=== PATIENT | male | born 1975 | race Caucasian/White ===

== ENCOUNTER 2016-10-11 10:49 | Day surgery (SDC) | payer MEDICARE, OTHER ==
[2016-10-07 14:48] VITALS: BMI 39.9
[~2016-10-11 10:49] MED LIST: LACTATED RINGERS 1,000 ML IV SCH
[2016-10-11 12:01] VITALS: RESP 16; TEMP 97.5
[2016-10-11] MEDS ORDERED: LIDOCAINE 1% 20 ML VIAL (10MG/ML) FOR IV START INTRADERMA ONE (12:02)
[2016-10-11] MEDS ORDERED: LIDOCAINE 1% INJ 10MG/ML (20 ML MDV) ONE (12:06)
[2016-10-11] MEDS ORDERED: PROPOFOL 10 MG/ML 20 ML VIAL IV ONE (12:06)
--- NOTE | 2016-10-11 12:49 | P.PCN ---
Date of Procedure: 10/11/16 Procedure(s) Performed: Procedure: Colonoscopy and biopsy. Preoperative diagnosis: Intermittent rectal bleeding. Postoperative diagnosis: 1. Low-grade internal hemorrhoids not bleeding at the time of this exam. 2. Two diminutive polyps in the sigmoid biopsied, but no large polyps or cancer. Preparation: HalfLytely prep. Sedation: Was provided by anesthesia Brief clinical history: The patient is a 41-year-old male who is referred for this evaluation because of intermittent rectal bleeding and finding of blood on the toilet tissue. He has no abdominal symptoms or change in bowel habits. This evaluation is to assess for a source of bleeding. Procedure: With the patient on his left lateral decubitus position and after informed consent and adequate sedation, the perianal area was inspected and it did not show any fissures or fistulas. There were no masses felt on digital rectal examination. The Olympus CFQ 160L video colonoscope was then inserted in the rectum in the usual fashion and advanced to the cecum. I intubated the ileocecal valve and examined the terminal ileum. Terminal ileum and colon appeared healthy with no edema, erythema, friability, ulceration, exudation or spontaneous bleeding. There were 2 diminutive polyps in the sigmoid which I biopsied but there were no large polyps or cancer. No obvious diverticular disease or other pathology. I retroflexed the endoscope in the rectum before the endoscope was withdrawn. Low-grade internal hemorrhoids were noted but there was no evidence of bleeding. The patient tolerated the procedure well. Plan: The patient was reassured. Discussed dietary measures and local care for hemorrhoids. He will follow-up with you as planned and I recommended repeat exam in 5 years.
[2016-10-11 13:02] VITALS: BP 134/89; PULSE 71
== END 2016-10-11 13:22 | disposition home or self-care (01) ==
LOC: ORWHC2ENDO 10:49
DX: K64.8 Other hemorrhoids (principal); D12.5 Benign neoplasm of sigmoid colon; Z87.19 Personal history of other diseases of the digestive system; J45.909 Unspecified asthma, uncomplicated; I10 Essential (primary) hypertension; F31.9 Bipolar disorder, unspecified; E66.9 Obesity, unspecified; Z79.899 Other long term (current) drug therapy; Z87.891 Personal history of nicotine dependence
CPT/HCPCS: 88305; 45380; J2001; J2704

== ENCOUNTER 2018-06-03 17:10 | Emergency (ER) | payer MEDICARE, OTHER ==
[2018-06-03 17:29] VITALS: RESP 18
--- NOTE | 2018-06-03 19:28 | CT ---
EXAMINATION TYPE: CT brain niko pandya DATE OF EXAM: 06/03/2018 COMPARISON: None HISTORY: Pt fell onto back of head, hitting concrete CT DLP: 1861.2 mGycm Automated exposure control for dose reduction was used. TECHNIQUE: CT scan of the head and cervical spine are performed without contrast. FINDINGS: There is enlargement of the ventricles. There are 6 x 3 cm area of white matter hypodensi ty right posterior frontal lobe consistent with old infarct. There is wedge-shaped 2.5 cm area of hyp odensity right occipital lobe consistent with old cortical infarct. There is no midline shift. There is no mass effect. There is a 3 cm area of hypodensity inferior right frontal lobe consistent with ol d cortical infarct. There is no evidence of intracranial hemorrhage. There is left posterior parietal scalp hematoma. I see no skull fracture. The skull base is intact. There is some straightening of the cervical spine. Disc spaces are fairly normal. Posterior elements are intact. There is no evidence of cervical spine fracture. Skull base is intact. Facet joints appea r normal. IMPRESSION: Negative CT scan of the cervical spine. Left parietal scalp hematoma. 

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
[2018-06-03] MEDS ORDERED: HYDROcodone/APAP 5-325MG 1 EACH TAB PO STA (20:18)
[2018-06-03 20:39] VITALS: BP 143/71; PULSE 77; TEMP 98.2
== END 2018-06-03 20:42 | disposition home or self-care (01) ==
LOC: EC 17:10
DX: S01.01XA Laceration without foreign body of scalp, initial encounter (principal); J45.909 Unspecified asthma, uncomplicated; I10 Essential (primary) hypertension; G80.9 Cerebral palsy, unspecified; F31.9 Bipolar disorder, unspecified; F25.9 Schizoaffective disorder, unspecified; F41.0 Panic disorder [episodic paroxysmal anxiety]; Z79.82 Long term (current) use of aspirin; Z79.899 Other long term (current) drug therapy; Z87.891 Personal history of nicotine dependence; W01.198A Fall on same level from slipping, tripping and stumbling with subsequent striking against other object, initial encounter; Y92.008 Other place in unspecified non-institutional (private) residence as the place of occurrence of the external cause
CPT/HCPCS: 70450; 72125; 99283

== ENCOUNTER 2020-06-28 09:19 | Emergency (ER) | payer MEDICARE, OTHER ==
[2020-06-28 09:24] VITALS: BP 100/73; PULSE 88; RESP 16; TEMP 99.4
--- NOTE | 2020-06-28 09:49 | ED ---
Abdominal Pain HPI - General Chief Complaint: Abdominal Pain Stated Complaint: groin pain Time Seen by Provider: 06/28/20 09:27 Source: patient, RN notes reviewed Mode of arrival: ambulatory Limitations: no limitations - History of Present Illness Initial Comments: 45-year-old presented emergency department with chief complaint of pain along the skin underneath his pannus. Patient states his started last 24 hours she's had recurrent fungal infections. He states his been losing weight and states that there is a fracture skin. Patient denies and diabetic patient offers no complaints. - Related Data Home Medications Medication Instructions Recorded Confirmed Albuterol Inhaler (Mhu) [Ventolin 1 - 2 puff INHALATION Q6HR PRN 10/07/16 10/07/16 Hfa Inhaler] Aspirin [Adult Low Dose Aspirin EC] 81 mg PO DAILY 10/07/16 10/07/16 DULoxetine HCL [Cymbalta] 60 mg PO DAILY 10/07/16 10/07/16 Fiber Supplement 1 dose PO DAILY 10/07/16 10/07/16 Fluticasone Propionate [Flovent 50 mcg INHALATION DAILY PRN 10/07/16 10/07/16 Diskus] Melatonin 6 mg PO HS 10/07/16 10/07/16 Mirabegron [Myrbetriq] 50 mg PO HS 10/07/16 10/07/16 QUEtiapine XR [SEROquel XR] 150 mg PO HS 10/07/16 10/07/16 busPIRone HCL [Buspar] 15 mg PO BID 10/07/16 10/07/16 clonazePAM [KlonoPIN] 0.25 mg PO BID 10/07/16 10/07/16 lamoTRIgine [LaMICtal Xr] 250 mg PO DAILY 10/07/16 10/07/16 lisinopriL [Prinivil] 20 mg PO DAILY 10/07/16 10/07/16 Previous Rx's Medication Instructions Recorded Nystatin 100,000 Unit/gm Powd 1 applic TOPICAL BID #15 gram 06/28/20 [Mycostatin Powder] Allergies Allergy/AdvReac Type Severity Reaction Status Date / Time No Known Allergies Allergy Verified 06/28/20 09:24 Review of Systems ROS Statement: Those systems with pertinent positive or pertinent negative responses have been documented in the HPI. ROS Other: All systems not noted in ROS Statement are negative. Past Medical History Past Medical History: Asthma, GI Bleed, Hypertension, Osteoarthritis (OA), Vascular Disorder Additional Past Medical History / Comment(s): CP, closed head injury, hx hyponatremia, anemia, internal hemorrhoids History of Any Multi-Drug Resistant Organisms: MRSA Date of last positivie culture/infection: stomach MDRO Source:: 2016 Past Surgical History: Orthopedic Surgery Additional Past Surgical History / Comment(s): scope dom. knees Past Anesthesia/Blood Transfusion Reactions: No Reported Reaction Past Psychological History: Bipolar, Panic Disorder, Schizoaffective Disorder Smoking Status: Former smoker Past Alcohol Use History: None Reported Past Drug Use History: None Reported - Past Family History Father Family Medical History: Cancer Additional Family Medical History / Comment(s): liver cancer General Exam Limitations: no limitations General appearance: alert, in no apparent distress Head exam: Present: atraumatic, normocephalic, normal inspection Eye exam: Present: normal appearance, PERRL, EOMI. Absent: scleral icterus, conjunctival injection, periorbital swelling ENT exam: Present: normal exam, mucous membranes moist Neck exam: Present: normal inspection, full ROM. Absent: tenderness, meningismus, lymphadenopathy Respiratory exam: Present: normal lung sounds bilaterally. Absent: respiratory distress, wheezes, rales, rhonchi, stridor Cardiovascular Exam: Present: regular rate, normal rhythm, normal heart sounds. Absent: systolic murmur, diastolic murmur, rubs, gallop, clicks Skin exam: Present: warm, dry, intact, normal color, rash (Erythema with bordering under the pannus) Course Vital Signs 06/28/20 09:21 Temperature 99.4 F Pulse Rate 88 Respiratory 16 Rate Blood Pressure 100/73 O2 Sat by Pulse 97 Oximetry Medical Decision Making - Medical Decision Making Patient has noted these infection. Patient was started on nystatin. Return parameters were discussed. Disposition Clinical Impression: Candidiasis, intertrigo Disposition: HOME SELF-CARE Condition: Stable Instructions (If sedation given, give patient instructions): Skin Yeast Infection (ED) Additional Instructions: Please return to the Emergency Department if symptoms worsen or any other concerns. Prescriptions: Nystatin 100,000 Unit/gm Powd [Mycostatin Powder] 1 applic TOPICAL BID #15 gram Is patient prescribed a controlled substance at d/c from ED?: No Referrals: Katherine Sexton DO [Primary Care Provider] - 1-2 days Time of Disposition: 09:49
== END 2020-06-28 10:25 | disposition home or self-care (01) ==
LOC: EC 09:19
DX: B37.2 Candidiasis of skin and nail (principal); L30.4 Erythema intertrigo; F41.9 Anxiety disorder, unspecified; F31.9 Bipolar disorder, unspecified; F41.0 Panic disorder [episodic paroxysmal anxiety]; F25.9 Schizoaffective disorder, unspecified; I10 Essential (primary) hypertension; M19.90 Unspecified osteoarthritis, unspecified site; J45.909 Unspecified asthma, uncomplicated; Z79.82 Long term (current) use of aspirin; Z79.51 Long term (current) use of inhaled steroids; Z79.899 Other long term (current) drug therapy; Z87.891 Personal history of nicotine dependence; Z86.14 Personal history of Methicillin resistant Staphylococcus aureus infection
CPT/HCPCS: 99283

== ENCOUNTER → 2021-03-13 | Outpatient (CLI) | payer MEDICARE, OTHER ==
--- NOTE | 2021-03-13 09:31 | XR ---
Lumbar spine HISTORY: Low back pain, bilateral leg numbness 3 views lumbar spine There is multilevel spondylosis present. Lumbar vertebral bodies show preserved height and alignment. Loss of disc height is present at intervertebral levels L3-4, L4-5 and L5-S1. IMPRESSION: Degenerative disc disease.
== END | disposition home or self-care (01) ==
LOC: RADXRMAIN 08:12
PROVIDERS: ATTEND Chiropractor
DX: M51.36 Other intervertebral disc degeneration, lumbar region (principal); M99.03 Segmental and somatic dysfunction of lumbar region; M54.42 Lumbago with sciatica, left side; M54.41 Lumbago with sciatica, right side
CPT/HCPCS: 72100

== ENCOUNTER → 2021-04-07 | Outpatient (CLI) | payer MEDICARE, OTHER ==
--- NOTE | 2021-04-07 15:11 | CONS ---
CONSULTATION DATE OF SERVICE: 04/07/2021 This 45-year-old gentleman has been evaluated in [facility] for possible obstructive sleep apnea-hypopnea syndrome. HISTORY OF PRESENT ILLNESS/SLEEP-WAKE EVALUATION: Patient's usual sleep schedule is from around 8 or 8:30 p.m. until 7 a.m. Sometimes he has problems with falling asleep. He has a TV set in the bedroom. He usually sleeps on the side position. He does snore loudly and he has witnessed episodes of stopped breathing during sleep. He also wakes up with episodes of gasping for air and nocturia 4 times at night. No history of hypnagogic hallucinations, sleep paralysis or cataplexy. During the day he usually does not take naps. [place] Sleepiness Scale is 6. The patient has a history of restless leg symptoms. PAST MEDICAL HISTORY: Positive for hypertension, bipolar disorder, schizophrenia, hyperlipidemia, asthma, hypothyroidism, anemia. MEDICATIONS: Clozaril, MiraLAX, lisinopril. SOCIAL HISTORY: Positive for smoking in the past; quit 15 years ago. FAMILY HISTORY: Cancer and diabetes. REVIEW OF SYSTEMS: Multiple awakenings from sleep, episodes of sleepiness during the day. No fevers. No double vision. No recent chest pain. No shortness of breath. No abdominal pain. No bleeding episodes. No blood in the urine. No seizure episodes. PHYSICAL EXAMINATION: GENERAL: Pleasant gentleman without distress. VITAL SIGNS: BP 118/80, HR 92, RR 18, height 5 feet 8 inches, weight 281.4, temperature 97.7, oxygen saturation at room air 97%. Body mass index 42.7. HEENT: PERRLA, EOMI, evaluation of oropharynx showed tongue protrudes midline. Extremely low position of soft palate; Mallampati IV. NECK: Supple, no JVD. Thyroid is not palpable. Neck is wide; 17-1/2 inches in circumference. LUNGS: Clear to percussion and to auscultation. Good air exchange. No wheezing or rhonchi. HEART: S1, S2 regular. No murmurs, gallops, or rubs. ABDOMEN: Obese. EXTREMITIES: No clubbing or cyanosis. OFFICE SUPPORT CLERK: Awake, alert, and oriented X3. Cranial nerves 2 to 7 intact. There is no fasciculation or atrophy. noted. No focal deficits observed. IMPRESSION: 1. Loud snoring, witnessed episodes of stopped breathing during sleep, multiple awakenings from sleep with gasping for air and nocturia, extremely low position of soft palate, wide neck; obstructive sleep apnea-hypopnea syndrome. 2. Hypertension. 3. Bipolar disorder. 4. History of schizophrenia. 5. Obesity; body mass index 42.7. 6. Hyperlipidemia. 7. History of asthma. 8. History of hypothyroidism. 9. History of anemia. 10.Symptoms of restless legs syndrome. PLAN: 1. Polysomnography for evaluation of patient's breathing during sleep. 2. CPAP/BiPAP titration if sleep study confirms obstructive sleep apnea-hypopnea syndrome. 3. Preferable position during sleep on the side. 4. No driving if patient feels any sleepiness. 5. I will see patient for follow up visit to explain results of testing and following plan. Thank you very much for referring this patient for consultation. Sincerely, Gilles Palma MD, PhD, FAASM Diplomat of [place] [employer] Sleep Medicine Board of [place] [employer] Players Assistant of [facility] [place] MMODL / ANNETTEN: [id number] /
== END | disposition home or self-care (01) ==
LOC: SLEEP 13:16
PROVIDERS: ATTEND Internal Medicine
DX: G47.33 Obstructive sleep apnea (adult) (pediatric) (principal); I10 Essential (primary) hypertension; F31.9 Bipolar disorder, unspecified; E78.5 Hyperlipidemia, unspecified; E66.9 Obesity, unspecified; Z86.69 Personal history of other diseases of the nervous system and sense organs; Z68.41 Body mass index [BMI] 40.0-44.9, adult; Z87.09 Personal history of other diseases of the respiratory system; Z86.39 Personal history of other endocrine, nutritional and metabolic disease; Z86.2 Personal history of diseases of the blood and blood-forming organs and certain disorders involving the immune mechanism
CPT/HCPCS: 99211

== ENCOUNTER 2022-02-03 10:11 | Inpatient (IN) | payer MEDICARE, OTHER ==
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
--- NOTE | 2022-02-03 14:32 | ED ---
General Adult HPI - General Chief complaint: Fall Stated complaint: Fall Time Seen by Provider: 02/03/22 13:41 Source: patient, family, RN notes reviewed Mode of arrival: ambulatory Limitations: no limitations - History of Present Illness Initial comments: Patient is a pleasant 46-year-old female presenting to the emergency department with concerns for possible stroke. Patient has had previously. Patient last known well was around 8 PM last night. Patient woke up on the floor, unclear how he got there. Patient has had some slurred speech. Family noticed as well. This has improved. Patient has also had some wobbliness of his legs over the past few days. No isolated area of weakness. Patient feels a little bit lightheaded. - Related Data Home Medications Medication Instructions Recorded Confirmed Albuterol Inhaler [Ventolin Hfa 1 - 2 puff INHALATION Q6HR PRN 10/07/16 10/07/16 Inhaler] Aspirin [Adult Low Dose Aspirin EC] 81 mg PO DAILY 10/07/16 10/07/16 DULoxetine HCL [Cymbalta] 60 mg PO DAILY 10/07/16 10/07/16 Fiber Supplement 1 dose PO DAILY 10/07/16 10/07/16 Fluticasone Propionate [Flovent 50 mcg INHALATION DAILY PRN 10/07/16 10/07/16 Diskus] Melatonin 6 mg PO HS 10/07/16 10/07/16 Mirabegron [Myrbetriq] 50 mg PO HS 10/07/16 10/07/16 QUEtiapine XR [SEROquel XR] 150 mg PO HS 10/07/16 10/07/16 busPIRone HCL [Buspar] 15 mg PO BID 10/07/16 10/07/16 clonazePAM [KlonoPIN] 0.25 mg PO BID 10/07/16 10/07/16 lamoTRIgine [LaMICtal Xr] 250 mg PO DAILY 10/07/16 10/07/16 lisinopriL [Prinivil] 20 mg PO DAILY 10/07/16 10/07/16 Previous Rx's Medication Instructions Recorded Nystatin 100,000 Unit/gm Powd 1 applic TOPICAL BID #15 gram 06/28/20 [Mycostatin Powder] Allergies Allergy/AdvReac Type Severity Reaction Status Date / Time No Known Allergies Allergy Verified 02/03/22 10:25 Review of Systems ROS Statement: Those systems with pertinent positive or pertinent negative responses have been documented in the HPI. ROS Other: All systems not noted in ROS Statement are negative. Constitutional: Denies: fever Eyes: Denies: eye pain ENT: Denies: ear pain Respiratory: Denies: cough Cardiovascular: Denies: chest pain Endocrine: Denies: fatigue Gastrointestinal: Denies: abdominal pain Genitourinary: Denies: dysuria Neurological: Reports: as per HPI. Denies: headache Past Medical History Past Medical History: Asthma, GI Bleed, Hypertension, Osteoarthritis (OA), Vascular Disorder Additional Past Medical History / Comment(s): CP, closed head injury, hx hyponatremia, anemia, internal hemorrhoids History of Any Multi-Drug Resistant Organisms: MRSA Date of last positivie culture/infection: stomach MDRO Source:: 2016 Past Surgical History: Orthopedic Surgery Additional Past Surgical History / Comment(s): scope dom. knees Past Anesthesia/Blood Transfusion Reactions: No Reported Reaction Past Psychological History: Bipolar, Panic Disorder, Schizoaffective Disorder Smoking Status: Former smoker Past Alcohol Use History: None Reported Past Drug Use History: None Reported - Past Family History Father Family Medical History: Cancer Additional Family Medical History / Comment(s): liver cancer General Exam Limitations: no limitations General appearance: alert, in no apparent distress Head exam: Present: normocephalic Eye exam: Present: normal appearance, PERRL, EOMI ENT exam: Present: normal oropharynx Neck exam: Present: normal inspection. Absent: tenderness Respiratory exam: Present: normal lung sounds bilaterally Cardiovascular Exam: Present: regular rate, normal rhythm GI/Abdominal exam: Present: soft. Absent: tenderness Extremities exam: Present: normal inspection Neurological exam: Present: alert, CN II-XII intact. Absent: motor sensory deficit Expanded Speech: Present: fluid speech Cranial nerves: EOM's Intact: Normal Motor strength exam: RUE: 5, LUE: 5, RLE: 5, LLE: 5 Eye Response: (4) open spontaneously Motor Response: (6) obeys commands Verbal Response: (5) oriented Psychiatric exam: Present: normal affect, normal mood Skin exam: Present: normal color Course Vital Signs 02/03/22 10:17 Temperature 97.5 F L Pulse Rate 96 Respiratory 18 Rate Blood Pressure 99/49 O2 Sat by Pulse 97 Oximetry EKG Findings - EKG Comments: EKG Findings:: Sinus rhythm with rate of 78. SC 191. QRS 112. QT 399. QTC 432. Normal axis. Normal QRS. No acute ST change. Medical Decision Making - Medical Decision Making Patient reevaluated. Patient and family updated. Case was discussed with Dr. Candelaria, who will admit covering for Dr. Sexton. Patient has some dehydration and hyponatremia. IV fluids will be provided. Neurology will be evaluated secondary to patient's concern for TIA/CVA with slurred this morning. - Lab Data Result diagrams: 02/03/22 14:56 02/03/22 14:56 Lab Results 02/03/22 02/03/22 02/03/22 Range/Units 14:56 14:56 14:56 WBC 18.2 H (3.8-10.6) k/uL RBC 4.04 L (4.30-5.90) m/uL Hgb 12.8 L (13.0-17.5) gm/dL Hct 38.2 L (39.0-53.0) % MCV 94.6 (80.0-100.0) fL MCH 31.7 (25.0-35.0) pg MCHC 33.5 (31.0-37.0) g/dL RDW 12.7 (11.5-15.5) % Plt Count 343 (150-450) k/uL MPV 7.6 Neutrophils % 87 % Lymphocytes % 6 % Monocytes % 5 % Eosinophils % 0 % Basophils % 0 % Neutrophils # 15.8 H (1.3-7.7) k/uL Lymphocytes # 1.1 (1.0-4.8) k/uL Monocytes # 0.9 (0-1.0) k/uL Eosinophils # 0.1 (0-0.7) k/uL Basophils # 0.0 (0-0.2) k/uL PT 10.1 (9.0-12.0) sec INR 0.9 (<1.2) APTT 26.8 (22.0-30.0) sec Sodium 124 L (137-145) mmol/L Potassium 4.5 (3.5-5.1) mmol/L Chloride 95 L (98-107) mmol/L Carbon Dioxide 15 L (22-30) mmol/L Anion Gap 14 mmol/L BUN 31 H (9-20) mg/dL Creatinine 1.95 H (0.66-1.25) mg/dL Est GFR (CKD-EPI)AfAm 47 (>60 ml/min/1.73 sqM) Est GFR (CKD-EPI)NonAf 41 (>60 ml/min/1.73 sqM) Glucose 77 (74-99) mg/dL Calcium 8.9 (8.4-10.2) mg/dL Total Bilirubin 0.5 (0.2-1.3) mg/dL AST 38 (17-59) U/L ALT 30 (4-49) U/L Alkaline Phosphatase 75 (38-126) U/L Troponin I (0.000-0.034) ng/mL Total Protein 6.2 L (6.3-8.2) g/dL Albumin 3.6 (3.5-5.0) g/dL 02/03/22 Range/Units 14:56 WBC (3.8-10.6) k/uL RBC (4.30-5.90) m/uL Hgb (13.0-17.5) gm/dL Hct (39.0-53.0) % MCV (80.0-100.0) fL MCH (25.0-35.0) pg MCHC (31.0-37.0) g/dL RDW (11.5-15.5) % Plt Count (150-450) k/uL MPV Neutrophils % % Lymphocytes % % Monocytes % % Eosinophils % % Basophils % % Neutrophils # (1.3-7.7) k/uL Lymphocytes # (1.0-4.8) k/uL Monocytes # (0-1.0) k/uL Eosinophils # (0-0.7) k/uL Basophils # (0-0.2) k/uL PT (9.0-12.0) sec INR (<1.2) APTT (22.0-30.0) sec Sodium (137-145) mmol/L Potassium (3.5-5.1) mmol/L Chloride (98-107) mmol/L Carbon Dioxide (22-30) mmol/L Anion Gap mmol/L BUN (9-20) mg/dL Creatinine (0.66-1.25) mg/dL Est GFR (CKD-EPI)AfAm (>60 ml/min/1.73 sqM) Est GFR (CKD-EPI)NonAf (>60 ml/min/1.73 sqM) Glucose (74-99) mg/dL Calcium (8.4-10.2) mg/dL Total Bilirubin (0.2-1.3) mg/dL AST (17-59) U/L ALT (4-49) U/L Alkaline Phosphatase (38-126) U/L Troponin I <0.012 (0.000-0.034) ng/mL Total Protein (6.3-8.2) g/dL Albumin (3.5-5.0) g/dL - Radiology Data Radiology results: report reviewed (CT brain shows no acute process. Stable remote injuries right frontal lobe and right occipital. No C-spine fracture. Stable cystic enlargement anterior horn right lateral ventricle), image reviewed (Two-view chest x-ray shows no acute process.) Disposition Clinical Impression: Dehydration, Hyponatremia Disposition: ADMITTED IP TO THIS HOSP Is patient prescribed a controlled substance at d/c from ED?: No Referrals: Katherine Sexton DO [Primary Care Provider] - 1-2 days Time of Disposition: 15:59
[2022-02-03 15:05] LABS: Basophils % (A) 0 %; Eosinophils # (A) 0.1 k/uL (0-0.7); Eosinophils % (A) 0 %; HCT 38.2 % (39.0-53.0); HGB 12.8 gm/dL (13.0-17.5); Lymphocytes # (A) 1.1 k/uL (1.0-4.8); Lymphocytes % (A) 6 %; MCH 31.7 pg (25.0-35.0); MCHC 33.5 g/dL (31.0-37.0); MCV 94.6 fL (80.0-100.0); Mean Platelet Volume 7.6; Monocytes # (A) 0.9 k/uL (0-1.0); Monocytes % (A) 5 %; Neutrophils # (A) 15.8 k/uL (1.3-7.7); Neutrophils % (A) 87 %; Platelet Count 343 k/uL (150-450); RBC 4.04 m/uL (4.30-5.90); RDW 12.7 % (11.5-15.5); WBC 18.2 k/uL (3.8-10.6)
--- NOTE | 2022-02-03 15:30 | XR ---
EXAMINATION TYPE: XR chest 2V DATE OF EXAM: 02/03/2022 3:20 PM COMPARISON: None TECHNIQUE: XR chest 2V Frontal and lateral views of the chest. CLINICAL INDICATION:Male, 46 years old with history of altered mental status; FINDINGS: Lungs/Pleura: There is no evidence of pleural effusion, focal consolidation, or pneumothorax. Pulmonary vascularity: Unremarkable. Heart/mediastinum: Cardiomediastinal silhouette is unremarkable. Musculoskeletal: No acute osseous pathology. IMPRESSION: No acute cardiopulmonary disease/process.
[2022-02-03 15:31] LABS: INR 0.9 (<1.2); Partial Thromboplastin Time 26.8 sec (22.0-30.0); Prothrombin Time 10.1 sec (9.0-12.0)
[2022-02-03 15:34] LABS: Albumin 3.6 g/dL (3.5-5.0); Calcium 8.9 mg/dL (8.4-10.2); Potassium 4.5 mmol/L (3.5-5.1); Total Bilirubin 0.5 mg/dL (0.2-1.3); Total Protein 6.2 g/dL (6.3-8.2)
[2022-02-03] MEDS ORDERED: NALOXONE 0.4 MG/ML 1 ML VIAL IV PRN (16:00)
[2022-02-03] MEDS ORDERED: SODIUM CHLORIDE 0.9% 500 ML 500 ML IV STA (16:01)
[2022-02-03] MEDS ORDERED: FLUTICASONE 50MCG/SPRAY NASAL 16GM EA NOSTRIL PRN (20:06)
[2022-02-03] MEDS ORDERED: hydrOXYzine pamoate 25 MG CAP PO PRN (20:06)
[2022-02-03] MEDS ORDERED: ALBUTEROL NEBULIZED 2.5 MG/3 ML INHALATION PRN (20:06)
[2022-02-03] MEDS: TOPIRAMATE 25 MG TAB PO SCH (20:57)
[2022-02-03] MEDS: busPIRone HCl 10 MG TAB PO SCH (20:57)
[2022-02-03] MEDS: DULoxetine HCL 60 MG CAPSULE.DR PO SCH (20:58)
[2022-02-03] MEDS: cloZAPine 100 MG TAB PO SCH (20:58)
[2022-02-03] MEDS ORDERED: LITHIUM CARBONATE 300 MG CAP PO SCH (21:00)
[2022-02-03] MEDS: SODIUM CHLORIDE 0.9% 1,000 ML IV SCH (22:36)
[2022-02-04] MEDS: LEVOTHYROXINE 25 MCG TAB PO SCH (06:12)
[2022-02-04] MEDS: SODIUM CHLORIDE 0.9% 1,000 ML IV SCH ×2 (06:13→21:51)
[2022-02-04 07:14] LABS: Glucose,Whole Blood 80 mg/dL (70-110)
[2022-02-04] MEDS: INSULIN ASPART (NovoLOG) 100 UNIT/ML VIAL SQ SCH ×4 (08:17→23:31)
[2022-02-04] MEDS: TOPIRAMATE 25 MG TAB PO SCH ×2 (08:50→23:17)
[2022-02-04] MEDS: lisinopriL 20 MG TAB PO SCH (08:50)
[2022-02-04] MEDS: PROPRANOLOL LA 60 MG CAP.SA.24H PO SCH (08:50)
[2022-02-04] MEDS: DULoxetine HCL 60 MG CAPSULE.DR PO SCH ×2 (08:50→23:16)
[2022-02-04] MEDS: busPIRone HCl 10 MG TAB PO SCH ×2 (08:50→23:14)
[2022-02-04] MEDS: DOCUSATE 100 MG CAP PO SCH (08:51)
[2022-02-04] MEDS: PRAVASTATIN SODIUM 20 MG TAB PO SCH (08:51)
[2022-02-04] MEDS: TAMSULOSIN 0.4 MG CAP.ER.24H PO SCH (08:51)
[2022-02-04 08:57] LABS: Basophils # (A) 0.04 X 10*3/uL (0.00-0.10); Basophils % (A) 0.3 %; Eosinophils # (A) 0.11 X 10*3/uL (0.04-0.35); Eosinophils % (A) 0.7 %; HCT 35.2 % (39.6-50.0); HGB 11.9 g/dL (13.0-17.0); Immature Grans, Automated 0.7 %; Lymphocytes # (A) 1.36 X 10*3/uL (0.90-5.00); Lymphocytes % (A) 9.2 %; MCH 31.4 pg (27.0-32.0); MCHC 33.8 g/dL (32.0-37.0); MCV 92.9 fL (80.0-97.0); Mean Platelet Volume 10.3 fL (9.5-12.2); Monocytes # (A) 1.32 X 10*3/uL (0.20-1.00); Monocytes % (A) 8.9 %; NRBC Per 100 WBC 0 /100 WBCS (0.0-0.0); Neutrophils # (A) 11.85 X 10*3/uL (1.80-7.70); Neutrophils % (A) 80.2 %; Platelet Count 317 X 10*3/uL (140-440); RBC 3.79 X 10*6/uL (4.40-5.60); RDW 12.8 % (11.5-14.5); WBC 14.78 X 10*3/uL (4.50-10.00)
[2022-02-04 09:22] LABS: ALT 28 U/L (10-49); AST 29 U/L (14-35); African American GFR (CKD) 59.4 (60.0-200.0); Albumin 3.4 g/dL (3.8-4.9); Albumin/Globulin Ratio 1.62 (1.60-3.17); Alkaline Phosphatase 70 U/L (41-126); BUN/Creat Ratio 20.75 Ratio (12.00-20.00); Blood Urea Nitrogen 33.2 mg/dL (9.0-27.0); Carbon Dioxide 18.4 mmol/L (20.0-27.5); Chloride 99 mmol/L (96-109); Globulin 2.1 g/dL (1.6-3.3); Glucose 78 mg/dL (70-110); Non-African American GFR(CKD) 51.3 (60.0-200.0); Potassium 4.1 mmol/L (3.5-5.5); Sodium 127 mmol/L (135-145); Total Bilirubin <0.15 mg/dL (0.30-1.20); Total Protein 5.5 g/dL (6.2-8.2)
--- NOTE | 2022-02-04 11:18 | P.CNNES ---
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 Patient is a poor historian. But stated he passed out in middle of night prior to presenting to hospital. Then he noticed his speech is off. He denies any fever, headache, neck pain. Denies any sick contacts. Feels his speech is better but continues to have generalized weakness. He re sides home a lone. According to him he does not follow-up with neurologist. Some of the workup during this hospital visit consisted of: On presentation patient initial vital signs his blood pressure of 99/49, heart rate of 96, respiratory of 18, temperature of 97.5 Fahrenheit tympanic and pulse ox of 97% at room air. Initial white blood cells 18.2 thousand and the repeat is 14.78. Was slightly neutrophilic. Initial sodium is 120 for repeat is 127, creatinine is 1.95 and BUN is 31 repeated the creatinine is 1.6. Initial serum glucose is 77. Last sodium that was low in our system was in 2016 and it was 135. I did not see any prior sodium in our system prior to that. CT of the head is reported as no acute intracranial process. No significant change from prior examination. Stable remote injuries in the right frontal lobe and the right occipital lobe. Stable cystic enlargement of the anterior horn of the right lateral ventricle which may at relate to the prior trauma versus porencephalic cyst. I personally reviewed the CT of the head and I feel like there is no acute or subacute ischemia there is no intracranial hemorrhage. 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 CT cervical spine was reported as no evidence of cervical spine fracture. Review of Systems Review of system: The 12 point system was reviewed and apparent positive and negative per HPI. Past Medical History Past Medical History: Asthma, GI Bleed, Hypertension, Osteoarthritis (OA), Vascular Disorder Additional Past Medical History / Comment(s): CP, closed head injury, hx hyponatremia, anemia, internal hemorrhoids History of Any Multi-Drug Resistant Organisms: MRSA Date of last positivie culture/infection: stomach MDRO Source:: 2017 Past Surgical History: Orthopedic Surgery Additional Past Surgical History / Comment(s): scope dom. knees Past Anesthesia/Blood Transfusion Reactions: No Reported Reaction Past Psychological History: Bipolar, Panic Disorder, Schizoaffective Disorder Smoking Status: Former smoker Past Alcohol Use History: None Reported Additional Past Alcohol Use History / Comment(s): smoked 10 years 2 ppd quit 2006. 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 Past Drug Use History: None Reported - Past Family History Father Family Medical History: Cancer Additional Family Medical History / Comment(s): liver cancer Medications and Allergies Home Medications Medication Instructions Recorded Confirmed Type Albuterol Inhaler [Ventolin Hfa 1 - 2 puff INHALATION RT-Q6H PRN 10/07/16 02/03/22 History Inhaler] Mirabegron [Myrbetriq] 50 mg PO HS 10/07/16 02/03/22 History lisinopriL [Prinivil] 20 mg PO DAILY 10/07/16 02/03/22 History DULoxetine HCL [Cymbalta] 60 mg PO BID 02/03/22 02/03/22 History Diclofenac Sodium [Voltaren] 75 mg PO BID 02/03/22 02/03/22 History Docusate [Colace] 100 mg PO DAILY 02/03/22 02/03/22 History Fluticasone Nasal [place] [Flonase 1 spray EA NOSTRIL BID PRN 02/03/22 02/03/22 History Nasal [place]] Levothyroxine Sodium [Synthroid] 25 mcg PO DAILY 02/03/22 02/03/22 History [place] Carbonate 900 mg PO HS 02/03/22 02/03/22 History Pravastatin Sodium [Pravachol] 20 mg PO DAILY 02/03/22 02/03/22 History Propranolol LA [Inderal LA] 60 mg PO DAILY 02/03/22 02/03/22 History Semaglutide [Ozempic] 0.25 - 0.5 mg SQ SA 02/03/22 02/04/22 History Tamsulosin [Flomax] 0.4 mg PO DAILY 02/03/22 02/03/22 History Topiramate 50 mg PO BID 02/03/22 02/03/22 History busPIRone HCL [Buspar] 30 mg PO BID 02/03/22 02/03/22 History cloZAPine [Clozaril] 250 mg PO HS 02/03/22 02/03/22 History hydrOXYzine pamoate [hydrOXYzine 25 mg PO TID PRN 02/03/22 02/03/22 History PAMOATE] Allergies Allergy/AdvReac Type Severity Reaction Status Date / Time No Known Allergies Allergy Verified 02/03/22 17:09 Physical Examination - Vital Signs Vital Signs: Vital Signs Temp Pulse Pulse Resp BP BP Pulse Ox 02/04/22 07:56 97.4 F L 77 14 88/62 97 02/04/22 02:12 97.3 F L 74 17 105/67 97 02/03/22 19:45 97.2 F L 70 18 96/45 96 02/03/22 16:41 78 16 98 02/03/22 10:17 97.5 F L 96 18 99/49 97 Intake and Output 02/03/22 02/04/22 02/04/22 22:59 06:59 14:59 Other: Voiding Method Bedside Commode Bedside Commode Urinal Urinal # Voids 2 Weight 126.552 kg GENERAL: The patient is lying in bed and is not in acute distress. CHEST: The heart rate is regular rate rhythm. No murmurs to auscultation. LUNG: Clear to auscultation bilaterally no wheezing noted throughout. Not labored breathing. ABDOMEN/GI: Bowel sounds present in all 4 quadrants. No tenderness to palpation throughout. NEUROLOGICAL: Higher mental function: The patient is drowsy but is awakeable to voice. Is oriented to self, place. Correctly stated the year but stated the month is December. Somewhat slow in responding. Is able to name objects. Patient is following simple commands. No aphasia and no neglect. Cranial nerves: The pupils are round, equal and reactive to light. Visual merchant are full to confrontation throughout. Extraocular movement is intact no nystagmus is noted. Facial sensation is normal to touch throughout. The facial strength is normal throughout. Tongue is midline and moved [id number] without any difficulty. No dysarthria is noted. Shoulder shrug is normal bilaterally. Motor: Gait is deferred. The strength is left lower extremity is 4. Otherwise 5 over 5 throughout. Decrease bulk over the left lower extremity (stated old). Has negative myoclonus of hand upon extension. Cerebellum: Normal finger to nose bilaterally. Sensation: Sensation is normal to touch throughout. Reflexes (right/left): 1+ throughout. Plantars are mute bilaterally. Results - Laboratory Findings CBC and BMP: 02/04/22 05:02 02/04/22 05:02 Abnormal Lab Findings: Abnormal Labs 02/03/22 02/03/22 02/04/22 14:56 14:56 05:02 WBC 18.2 H 14.78 H RBC 4.04 L 3.79 L Hgb 12.8 L 11.9 L Hct 38.2 L 35.2 L Immature Gran # 0.10 H Neutrophils # 15.8 H 11.85 H Monocytes # 1.32 H Sodium 124 L Chloride 95 L Carbon Dioxide 15 L Anion Gap BUN 31 H Creatinine 1.95 H Est GFR (CKD-EPI)AfAm Est GFR (CKD-EPI)NonAf BUN/Creatinine Ratio Total Bilirubin Total Protein 6.2 L Albumin 02/04/22 05:02 WBC RBC Hgb Hct Immature Gran # Neutrophils # Monocytes # Sodium 127 L Chloride Carbon Dioxide 18.4 L Anion Gap 9.60 L BUN 33.2 H Creatinine 1.6 H Est GFR (CKD-EPI)AfAm 59.4 L Est GFR (CKD-EPI)NonAf 51.3 L BUN/Creatinine Ratio 20.75 H Total Bilirubin <0.15 L Total Protein 5.5 L Albumin 3.4 L Assessment and Plan Assessment: Generalized weakness with transient speech difficulty due to metabolic derangement and hypotensive episodes Acute on chronic hyponatremia and presented with a sodium of 124 Hypotensive episode. Rule out sepsis Leukocytosis and trending down but afebrile. Unsure cause. Rule out sepsis. 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 History of hypertension Plan: I ordered carotid duplex. Ordered routine EEG since patient had a syncopal episode at home to rule any seizure activity or epileptiform discharges. Ordered [place] level, TSH, Vitamin B12, folate and ammonia level. Will defer [place] management to primary team. Continue neuro checks. PT and OT are consulted Will defer electrolyte imbalance correction and possible sepsis work-upt to the primary team. Will defer rest of medical management to the primary team Upon discharge, the patient needs to follow-up with neurologist as outpatient within 1-2 weeks. The plan is discussed with the nurse. Thank you for the consultation. Julius Sandoval M.D. Neuro-Hospitalist Time with Patient: Greater than 30
--- NOTE | 2022-02-04 11:39 | US ---
EXAMINATION TYPE: US carotid duplex BILAT DATE OF EXAM: 02/04/2022 COMPARISON: NONE CLINICAL HISTORY: stroke. TECHNIQUE: Carotid duplex ultrasound examination. Indirect Doppler criteria was utilized. FINDINGS: EXAM MEASUREMENTS: RIGHT: Peak Systolic Velocity (PSV) cm/sec ----- Right CCA: 140 ----- Right ICA: 133 ----- Right ECA: 145 ICA/CCA ratio: 0.95 RIGHT: End Diastole cm/sec ----- Right CCA: 17.6 ----- Right ICA: 19 ----- Right ECA: 0.0 LEFT: Peak Systolic Velocity (PSV) cm/sec ----- Left CCA: 125 ----- Left ICA: 117 ----- Left ECA: 111 ICA/CCA ratio: 0.93 LEFT: End Diastole cm/sec ----- Left CCA: 9.7 ----- Left ICA: 23.4 ----- Left ECA: 8.0 VERTEBRALS (direction of flow): Right Vertebral: Antegrade Left Vertebral: Antegrade Rhythm: Normal CONTRACT FORESTER NOTES: No significant stenosis seen, minimal plaque, technically difficult patient unable to well hold still. IMPRESSION: Atherosclerotic plaque with no significant hemodynamic stenosis as visualized. Criteria for Assigning % of Stenosis / Diameter reduction (Estimation based on the indirect measurements of the internal carotid artery velocities (ICA PSV). 1. Normal (no stenosis)=ICA PSV < 125 cm/s: ratio < 2.0: ICA EDV<40 cm/s. 2. Less than 50% stenosis=ICA PSV < 125 cm/s: ratio < 2.0: ICA EDV<40 cm/s. 3. 50 to 69% stenosis=ICA PSV of 125 to 230 cm/s: ration 2.0 ? 4.0: ICA EDV 40-100 cm/s. 4. Greater than 70% stenosis to near occlusion= ICA PSV > 230 cm/s: ratio > 4.0: ICA EDV > 100 cm/s. 5. Near occlusion= ICA PSV velocities may be low or undetectable: variable ratio and ICA EDV. 6. Total occlusion=unable to detect flow.
[2022-02-04 11:43] LABS: Glucose,Whole Blood 95 mg/dL (70-110)
[2022-02-04 17:20] LABS: Glucose,Whole Blood 145 mg/dL (70-110)
[2022-02-04 19:27] LABS: Appearance,Urine Clear (Clear); Bilirubin,Urine Negative (Negative); Blood,Urine Negative (Negative); Color,Urine Yellow; Glucose,Urine (UA) Negative (Negative); Ketones,Urine Negative (Negative); Leukocyte Esterase,Urine Negative (Negative); Nitrite,Urine Negative (Negative); Protein,Urine Negative (Negative); Specific Gravity,Urine 1.008 (1.001-1.035); Urobilinogen,Urine <2.0 mg/dL (<2.0)
[2022-02-04 20:36] LABS: Glucose,Whole Blood 113 mg/dL (70-110)
--- NOTE | 2022-02-04 22:27 | P.HPIM ---
History of Present Illness H&P Date: 02/04/22 Chief Complaint: fall, slurred speech Parrish De Los Santos is a 46 yo M with PMH of cerebral palsy with LLE weakness, hx closed head injury, major depression who presented to the ED after a fall and slurred speech at home. He states he was in his usual state of health going to bed prior to admission, but next thing he knew he woke up on the floor. He complains he was not able to get his words out normally when he woke up. No chest pain, shortness of breath, abdominal pain, nausea, vomiting. No palpitations. On presentation BP 99/49, WBC 18k, Hgb 12.8, Na 124, trop negative. [place] 1.9. Pro-calcitonin 0.37. UA unremarkable. CXR no acute process. CT head no acute process. Review of Systems All systems: negative Constitutional: Reports malaise, Reports weakness, Denies chills, Denies fever Eyes: denies blurred vision, denies pain Ears, nose, mouth and throat: Denies headache, Denies sore throat Cardiovascular: Denies chest pain, Denies shortness of breath Respiratory: Denies cough Gastrointestinal: Denies abdominal pain, Denies diarrhea, Denies nausea, Denies vomiting Musculoskeletal: Denies myalgias Integumentary: Denies pruritus, Denies rash Neurological: Denies numbness, Denies weakness Psychiatric: Denies anxiety, Denies depression Endocrine: Denies fatigue, Denies weight change Past Medical History Past Medical History: Asthma, GI Bleed, Hypertension, Osteoarthritis (OA), Vascular Disorder Additional Past Medical History / Comment(s): CP, closed head injury, hx hyponatremia, anemia, internal hemorrhoids History of Any Multi-Drug Resistant Organisms: MRSA Date of last positivie culture/infection: stomach MDRO Source:: 2016 Past Surgical History: Orthopedic Surgery Additional Past Surgical History / Comment(s): scope dom. knees Past Anesthesia/Blood Transfusion Reactions: No Reported Reaction Past Psychological History: Bipolar, Panic Disorder, Schizoaffective Disorder Smoking Status: Former smoker Past Alcohol Use History: None Reported Additional Past Alcohol Use History / Comment(s): smoked 10 years 2 ppd quit 2006. 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 Past Drug Use History: None Reported - Past Family History Father Family Medical History: Cancer Additional Family Medical History / Comment(s): liver cancer Medications and Allergies Home Medications Medication Instructions Recorded Confirmed Type Albuterol Inhaler [Ventolin Hfa 1 - 2 puff INHALATION RT-Q6H PRN 10/07/16 02/03/22 History Inhaler] Mirabegron [Myrbetriq] 50 mg PO HS 10/07/16 02/03/22 History lisinopriL [Prinivil] 20 mg PO DAILY 10/07/16 02/03/22 History DULoxetine HCL [Cymbalta] 60 mg PO BID 02/03/22 02/03/22 History Diclofenac Sodium [Voltaren] 75 mg PO BID 02/03/22 02/03/22 History Docusate [Colace] 100 mg PO DAILY 02/03/22 02/03/22 History Fluticasone Nasal [place] [Flonase 1 spray EA NOSTRIL BID PRN 02/03/22 02/03/22 History Nasal [place]] Levothyroxine Sodium [Synthroid] 25 mcg PO DAILY 02/03/22 02/03/22 History [place] Carbonate 900 mg PO HS 02/03/22 02/03/22 History Pravastatin Sodium [Pravachol] 20 mg PO DAILY 02/03/22 02/03/22 History Propranolol LA [Inderal LA] 60 mg PO DAILY 02/03/22 02/03/22 History Semaglutide [Ozempic] 0.25 - 0.5 mg SQ SA 02/03/22 02/04/22 History Tamsulosin [Flomax] 0.4 mg PO DAILY 02/03/22 02/03/22 History Topiramate 50 mg PO BID 02/03/22 02/03/22 History busPIRone HCL [Buspar] 30 mg PO BID 02/03/22 02/03/22 History cloZAPine [Clozaril] 250 mg PO HS 02/03/22 02/03/22 History hydrOXYzine pamoate [hydrOXYzine 25 mg PO TID PRN 02/03/22 02/03/22 History PAMOATE] Allergies Allergy/AdvReac Type Severity Reaction Status Date / Time No Known Allergies Allergy Verified 02/03/22 17:09 Physical Exam Vitals: Vital Signs Temp Pulse Resp BP BP Pulse Ox 02/04/22 12:58 97.6 F 73 16 90/59 95 02/04/22 07:56 97.4 F L 77 14 88/62 97 02/04/22 02:12 97.3 F L 74 17 105/67 97 Intake and Output 02/04/22 02/04/22 02/04/22 06:59 14:59 22:59 Intake Total 118 240 Output Total 1775 Balance -1657 240 Intake: Oral 118 240 Output: Urine 1775 Other: Voiding Method Bedside Commode Urinal Urinal # Voids 2 # Bowel Movements 0 General: well nourished, well developed, NAD. Vitals reviewed Eyes: PERRL, EOMI, conjunctiva normal HENT: normocephalic, mucus membranes moist Neck: supple, no JVD Lungs: normal respiratory effort, no wheezes or rales CV: Regular rate and rhythm, no murmur. Peripheral pulses 2+ Abdomen: soft, nondistended, no organomegaly Lymph: no cervical or axillary LAD Skin: warm and dry. Neuro: A&Ox3, normal mood and affect. Str 5/5 dom UE. Sensation intact and symmetric facial Results CBC & Chem 7: 02/04/22 05:02 02/04/22 05:02 Labs: Abnormal Lab Results - Last 24 Hours (Table) 02/04/22 02/04/22 02/04/22 Range/Units 05:02 05:02 05:02 WBC 14.78 H (4.50-10.00) X 10*3/uL RBC 3.79 L (4.40-5.60) X 10*6/uL Hgb 11.9 L (13.0-17.0) g/dL Hct 35.2 L (39.6-50.0) % Immature Gran # 0.10 H (0.00-0.04) X 10*3/uL Neutrophils # 11.85 H (1.80-7.70) X 10*3/uL Monocytes # 1.32 H (0.20-1.00) X 10*3/uL Sodium 127 L (135-145) mmol/L Carbon Dioxide 18.4 L (20.0-27.5) mmol/L Anion Gap 9.60 L (10.00-18.00) mmol/L BUN 33.2 H (9.0-27.0) mg/dL Creatinine 1.6 H (0.6-1.5) mg/dL Est GFR (CKD-EPI)AfAm 59.4 L (60.0-200.0) Est GFR (CKD-EPI)NonAf 51.3 L (60.0-200.0) BUN/Creatinine Ratio 20.75 H (12.00-20.00) Ratio POC Glucose (mg/dL) (70-110) mg/dL Total Bilirubin <0.15 L (0.30-1.20) mg/dL Total Protein 5.5 L (6.2-8.2) g/dL Albumin 3.4 L (3.8-4.9) g/dL Vitamin B12 (200.0-944.0) pg/mL Procalcitonin (0.02-0.09) ng/mL [place] 1.90 H* (0.50-1.20) mmol/L 02/04/22 02/04/22 02/04/22 Range/Units 11:59 12:57 17:18 WBC (4.50-10.00) X 10*3/uL RBC (4.40-5.60) X 10*6/uL Hgb (13.0-17.0) g/dL Hct (39.6-50.0) % Immature Gran # (0.00-0.04) X 10*3/uL Neutrophils # (1.80-7.70) X 10*3/uL Monocytes # (0.20-1.00) X 10*3/uL Sodium (135-145) mmol/L Carbon Dioxide (20.0-27.5) mmol/L Anion Gap (10.00-18.00) mmol/L BUN (9.0-27.0) mg/dL Creatinine (0.6-1.5) mg/dL Est GFR (CKD-EPI)AfAm (60.0-200.0) Est GFR (CKD-EPI)NonAf (60.0-200.0) BUN/Creatinine Ratio (12.00-20.00) Ratio POC Glucose (mg/dL) 145 H (70-110) mg/dL Total Bilirubin (0.30-1.20) mg/dL Total Protein (6.2-8.2) g/dL Albumin (3.8-4.9) g/dL Vitamin B12 1303.0 H (200.0-944.0) pg/mL Procalcitonin 0.37 H (0.02-0.09) ng/mL [place] (0.50-1.20) mmol/L 02/04/22 Range/Units 20:34 WBC (4.50-10.00) X 10*3/uL RBC (4.40-5.60) X 10*6/uL Hgb (13.0-17.0) g/dL Hct (39.6-50.0) % Immature Gran # (0.00-0.04) X 10*3/uL Neutrophils # (1.80-7.70) X 10*3/uL Monocytes # (0.20-1.00) X 10*3/uL Sodium (135-145) mmol/L Carbon Dioxide (20.0-27.5) mmol/L Anion Gap (10.00-18.00) mmol/L BUN (9.0-27.0) mg/dL Creatinine (0.6-1.5) mg/dL Est GFR (CKD-EPI)AfAm (60.0-200.0) Est GFR (CKD-EPI)NonAf (60.0-200.0) BUN/Creatinine Ratio (12.00-20.00) Ratio POC Glucose (mg/dL) 113 H (70-110) mg/dL Total Bilirubin (0.30-1.20) mg/dL Total Protein (6.2-8.2) g/dL Albumin (3.8-4.9) g/dL Vitamin B12 (200.0-944.0) pg/mL Procalcitonin (0.02-0.09) ng/mL [place] (0.50-1.20) mmol/L Assessment and Plan Plan: 1. Slurred speech, altered mental status. Admit, rule out metabolic encephalopathy. Neurology consult 2. Leukocytosis, elevated pro-calcitonin. Start empiric rocephin. Blood cultures x2. Consult ID 3. Supratherapeutic lithium level. Reduce lithium from 900 to 600 mg.Continue to monitor 4. Hyponatremia. Likely secondary to lithium toxicity. IV fluids 5. Major depression. Continue home clozaril, buspar 6. T2DM. Accucheck, sliding scale insulin
[2022-02-04] MEDS: cloZAPine 100 MG TAB PO SCH (23:15)
[2022-02-04] MEDS: LITHIUM CARBONATE 300 MG CAP PO SCH (23:16)
--- NOTE | 2022-02-04 23:24 | P.CONS ---
History of Present Illness - Reason for Consult Consult date: 02/04/22 Leukocytosis possible sepsis risk Requesting physician: Luis Antonio Torres - Chief Complaint Passed out x 1 day - History of Present Illness Patient is a 46-year-old male with a past medical he significant for cerebral palsy lower extremity weakness history of close head injury and depression patient was brought into the ER yesterday morning after apparently the patient did have a fall and a syncopal episode patient did not recall what happened however he noticed himself to be on the ground and apparently did have a some trauma to the head and the solution to the bilateral knee area patient complaining of pain to bilateral knee area more of a dull aching to sharp about 5-6 out of 10 no radiation patient did have scratches to the knee but no open wound or any drainage patient is currently breathing comfortably on room air patient denies having any chest pain or shortness of breath he did have some cough not bringing any sputum no abdominal pain however has been complaining of some diarrhea and apparently patient was recently treated with oral antibiotic patient on presentation to the hospital was afebrile and no fever have been recorded subsequently patient did have white count of 18.2 with a left shift however came down to 14.70 today patient did have elevated BUN/creatinine liver exam has been normal patient did have a CT of the head and cervical spine negative for any fracture or bleed chest x-ray was negative for acute cardiopulmonary process infectious disease was consulted because of elevated white count and risk of sepsis Review of Systems Positive point has been mentioned in the HPI rest of the systems are negative Past Medical History Past Medical History: Asthma, GI Bleed, Hypertension, Osteoarthritis (OA), Vascular Disorder Additional Past Medical History / Comment(s): CP, closed head injury, hx hyponatremia, anemia, internal hemorrhoids History of Any Multi-Drug Resistant Organisms: MRSA Year Discovered:: stomach MDRO Source:: 2016 Past Surgical History: Orthopedic Surgery Additional Past Surgical History / Comment(s): scope dom. knees Past Anesthesia/Blood Transfusion Reactions: No Reported Reaction Past Psychological History: Bipolar, Panic Disorder, Schizoaffective Disorder Smoking Status: Former smoker Past Alcohol Use History: None Reported Additional Past Alcohol Use History / Comment(s): smoked 10 years 2 ppd quit 2006. 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 Past Drug Use History: None Reported - Past Family History Father Family Medical History: Cancer Additional Family Medical History / Comment(s): liver cancer Medications and Allergies Home Medications Medication Instructions Recorded Confirmed Type Albuterol Inhaler [Ventolin Hfa 1 - 2 puff INHALATION RT-Q6H PRN 10/07/16 History Inhaler] Mirabegron [Myrbetriq] 50 mg PO HS 10/07/16 02/03/22 History lisinopriL [Prinivil] 20 mg PO DAILY 10/07/16 02/03/22 History DULoxetine HCL [Cymbalta] 60 mg PO BID 02/03/22 02/03/22 History Diclofenac Sodium [Voltaren] 75 mg PO BID 02/03/22 02/03/22 History Docusate [Colace] 100 mg PO DAILY 02/03/22 02/03/22 History Fluticasone Nasal [place] [Flonase 1 spray EA NOSTRIL BID PRN 02/03/22 02/03/22 History Nasal [place]] Levothyroxine Sodium [Synthroid] 25 mcg PO DAILY 02/03/22 02/03/22 History [place] Carbonate 900 mg PO HS 02/03/22 02/03/22 History Pravastatin Sodium [Pravachol] 20 mg PO DAILY 02/03/22 02/03/22 History Propranolol LA [Inderal LA] 60 mg PO DAILY 02/03/22 02/03/22 History Semaglutide [Ozempic] 0.25 - 0.5 mg SQ SA 02/03/22 02/04/22 History Tamsulosin [Flomax] 0.4 mg PO DAILY 02/03/22 02/03/22 History Topiramate 50 mg PO BID 02/03/22 02/03/22 History busPIRone HCL [Buspar] 30 mg PO BID 02/03/22 02/03/22 History cloZAPine [Clozaril] 250 mg PO HS 02/03/22 02/03/22 History hydrOXYzine pamoate [hydrOXYzine 25 mg PO TID PRN 02/03/22 02/03/22 History PAMOATE] Allergies Allergy/AdvReac Type Severity Reaction Status Date / Time No Known Allergies Allergy Verified 02/03/22 17:09 Physical Exam Vitals: Vital Signs Temp Pulse Pulse Resp BP BP Pulse Ox 02/04/22 12:58 97.6 F 73 16 90/59 95 02/04/22 07:56 97.4 F L 77 14 88/62 97 02/04/22 02:12 97.3 F L 74 17 105/67 97 02/03/22 19:45 97.2 F L 70 18 96/45 96 02/03/22 16:41 78 16 98 Intake and Output 02/04/22 02/04/22 02/04/22 06:59 14:59 22:59 Output Total 1775 Balance -1775 Output: Urine 1775 Other: Voiding Method Bedside Commode Urinal # Voids 2 GENERAL DESCRIPTION: Middle-aged male lying in bed, no distress. No tachypnea or accessory muscle of respiration use. HEENT: Shows Pallor , no scleral icterus. Oral mucous membrane is dry. No pharyngeal erythema or thrush NECK: Trachea central, no thyromegaly. LUNGS: Unlabored breathing. Clear to auscultation anteriorly. No wheeze or crackle. HEART: S1, S2, regular rate and rhythm. No loud murmur ABDOMEN: Soft, mild distention but no tenderness EXTREMITIES: Bilateral knee with scratches and some erythema. SKIN: No rash, no masses palpable. NEUROLOGICAL: The patient is awake, alert, oriented x3, mood and affect normal. Results CBC & Chem 7: 02/04/22 05:02 02/04/22 05:02 Labs: Abnormal Lab Results - Last 24 Hours (Table) 02/03/22 02/04/22 02/04/22 Range/Units 14:56 05:02 05:02 WBC 14.78 H (4.50-10.00) X 10*3/uL RBC 3.79 L (4.40-5.60) X 10*6/uL Hgb 11.9 L (13.0-17.0) g/dL Hct 35.2 L (39.6-50.0) % Immature Gran # 0.10 H (0.00-0.04) X 10*3/uL Neutrophils # 11.85 H (1.80-7.70) X 10*3/uL Monocytes # 1.32 H (0.20-1.00) X 10*3/uL Sodium 124 L 127 L (137-145) mmol/L Chloride 95 L (98-107) mmol/L Carbon Dioxide 15 L 18.4 L (22-30) mmol/L Anion Gap 9.60 L (10.00-18.00) mmol/L BUN 31 H 33.2 H (9-20) mg/dL Creatinine 1.95 H 1.6 H (0.66-1.25) mg/dL Est GFR (CKD-EPI)AfAm 59.4 L (60.0-200.0) Est GFR (CKD-EPI)NonAf 51.3 L (60.0-200.0) BUN/Creatinine Ratio 20.75 H (12.00-20.00) Ratio Total Bilirubin <0.15 L (0.30-1.20) mg/dL Total Protein 6.2 L 5.5 L (6.3-8.2) g/dL Albumin 3.4 L (3.8-4.9) g/dL Assessment and Plan (1) Leukocytosis Current Visit: Yes Status: Acute Code(s): D72.829 - ELEVATED WHITE BLOOD CELL COUNT, UNSPECIFIED SNOMED Code(s): 180099839 Plan: 1patient presented to hospital with a syncopal episode patient did have a significant scratching to bilateral knee area and mild redness with concern for possible cellulitis patient did have elevated white count however also elevated BUN and creatinine and with hydration patient white count has trended down with a question of possible reactive patient with no fever we will make infection to be less likely but not entirely excluded. 2blood cultures have been obtained we will also obtain a CRP procalcitonin and a check a UA and a culture. 3check stool study in view of his diarrhea. 4empirically on Rocephin 1 g daily We will follow on clinical condition and cultures to further adjust medication if needed Thank you for this consultation will follow this patient along with you Time with Patient: Greater than 30
--- NOTE | 2022-02-05 01:21 | EEG ---
ELECTROENCEPHALOGRAM REPORT CLINICAL HISTORY: This is a 46-year-old gentleman who had a syncopal episode. The video EEG is obtained to evaluate for seizure epileptiform activity. RELEVANT MEDICATION: The patient is not on any antiepileptic drugs. EEG TYPE: A routine 21-channel EEG is performed with video using the 10/20 electrode placement system. DESCRIPTION: Wakefulness is only obtained. During awake state, the background consists of low-to- moderate voltage of 6 to 7 hertz activity. At times, the background consists of diffuse theta intermixed with delta activity. There is no physiological stage 2 sleep architecture seen. INTERICTAL AND ICTAL: None. ACTIVATION PROCEDURE: Photic stimulation did not evoke a posterior driving response. There is no abnormality during the photic stimulation. Hyperventilation is not performed. CLINICAL INTERPRETATION: This is an abnormal routine EEG. The background slowing is suggestive of mild-to- moderate encephalopathy. Otherwise, there is no focal slowing, epileptiform discharge or seizure on the EEG. Clinical correlation is recommended. GARCIA / AARON: [id number] / MTDD
[2022-02-05] MEDS: LEVOTHYROXINE 25 MCG TAB PO SCH (05:42)
[2022-02-05 07:29] LABS: Glucose,Whole Blood 90 mg/dL (70-110)
[2022-02-05] MEDS: INSULIN ASPART (NovoLOG) 100 UNIT/ML VIAL SQ SCH ×4 (08:15→22:53)
[2022-02-05] MEDS: TAMSULOSIN 0.4 MG CAP.ER.24H PO SCH (08:59)
[2022-02-05] MEDS: DULoxetine HCL 60 MG CAPSULE.DR PO SCH ×2 (08:59→20:21)
[2022-02-05] MEDS: TOPIRAMATE 25 MG TAB PO SCH ×2 (08:59→20:24)
[2022-02-05] MEDS: DOCUSATE 100 MG CAP PO SCH (09:00)
[2022-02-05] MEDS: lisinopriL 20 MG TAB PO SCH (09:00)
[2022-02-05] MEDS: SODIUM CHLORIDE 0.9% 1,000 ML IV SCH ×2 (09:00→22:53)
[2022-02-05] MEDS: PROPRANOLOL LA 60 MG CAP.SA.24H PO SCH (09:12)
[2022-02-05] MEDS: PRAVASTATIN SODIUM 20 MG TAB PO SCH (09:16)
[2022-02-05] MEDS: busPIRone HCl 10 MG TAB PO SCH ×2 (09:16→20:21)
[2022-02-05 10:18] LABS: ALT 26 U/L (10-49); AST 19 U/L (14-35); African American GFR (CKD) 76.4 (60.0-200.0); Albumin 3.5 g/dL (3.8-4.9); Albumin/Globulin Ratio 1.59 (1.60-3.17); Alkaline Phosphatase 75 U/L (41-126); BUN/Creat Ratio 21.69 Ratio (12.00-20.00); Blood Urea Nitrogen 28.2 mg/dL (9.0-27.0); Calcium 9.2 mg/dL (8.7-10.3); Carbon Dioxide 18.3 mmol/L (20.0-27.5); Chloride 111 mmol/L (96-109); Globulin 2.2 g/dL (1.6-3.3); Glucose 91 mg/dL (70-110); Non-African American GFR(CKD) 65.9 (60.0-200.0); Sodium 138 mmol/L (135-145); Total Bilirubin <0.15 mg/dL (0.30-1.20); Total Protein 5.7 g/dL (6.2-8.2)
--- NOTE | 2022-02-05 11:48 | P.PN ---
Subjective Progress Note Date: 02/05/22 The patient is seen at bedside and feel about the same. Does not feel back to baseline. Objective - Vital Signs Vital signs: Vital Signs Temp 97.4 F L 02/05/22 08:00 Pulse 86 02/05/22 08:00 Resp 18 02/05/22 08:00 BP 94/57 02/05/22 08:00 Pulse Ox 96 02/05/22 08:00 FiO2 Intake & Output 02/04/22 02/05/22 02/05/22 18:59 06:59 18:59 Intake Total 358 Output Total 1775 Balance -1417 Intake: Oral 358 Output: Urine 1775 Other: Voiding Method Bedside Commode Urinal Urinal Urinal # Voids 2 # Bowel Movements 0 - Exam GENERAL: The patient is lying in bed and is not in acute distress. NEUROLOGICAL: Higher mental function: The patient is drowsy but is awakeable to voice. Is oriented to self, place. Correctly stated the year but stated the month is December. Somewhat slow in responding. Is able to name objects. Patient is following simple commands. No aphasia and no neglect. Cranial nerves: The pupils are round, equal and reactive to light. Visual merchant are full to confrontation throughout. Extraocular movement is intact no nystagmus is noted. Facial sensation is normal to touch throughout. The facial strength is normal throughout. Tongue is midline and moved [id number] without any difficulty. No dysarthria is noted. Shoulder shrug is normal bilaterally. Motor: Gait is deferred. The strength is left lower extremity is 4. Otherwise 5 over 5 throughout. Decrease bulk over the left lower extremity (stated old). Has negative myoclonus of hand upon extension. Cerebellum: Normal finger to nose bilaterally. Sensation: Sensation is normal to touch throughout. Reflexes (right/left): 1+ throughout. Plantars are mute bilaterally. Some of the workup during this hospital visit consisted of: Initial white blood cells 18.2 thousand and the repeat is 14.78. Was slightly neutrophilic. Initial sodium is 120 for repeat is 127, creatinine is 1.95 and BUN is 31 repeated the creatinine is 1.6. Initial serum glucose is 77. Last sodium that was low in our system was in 2016 and it was 135. I did not see any prior sodium in our system prior to that. Ammonia level is 20 Vitamin B12: 1303 TSH: 2.30 folate: 10.80 CRP: 7.60 [place] level is 1.90 (normal is 0.50-1.20) U/A is negative for UTI. CT of the head is reported as no acute intracranial process. No significant change from prior examination. Stable remote injuries in the right frontal lobe and the right occipital lobe. Stable cystic enlargement of the anterior horn of the right lateral ventricle which may at relate to the prior trauma versus porencephalic cyst. I personally reviewed the CT of the head and I feel like there is no acute or subacute ischemia there is no intracranial hemorrhage. 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 CT cervical spine was reported as no evidence of cervical spine fracture. Routine EEG is abnormal. The back was SUGGESTIVE of mild to moderate encephalopathy. Otherwise there is no focal slowing, epileptiform discharges or seizure in the EEG. Clinical correlation is recommended Carotid duplex is reported as prescribed plaque with no significant hemodynamic stenosis as visualized. - Labs CBC & Chem 7: 02/04/22 05:02 02/05/22 06:02 Labs: Abnormal Lab Results - Last 24 Hours (Table) 02/04/22 02/04/22 02/04/22 Range/Units 05:02 11:59 12:57 [place]lor[place] (96-109) mmol/L Carbon Dioxide (20.0-27.5) mmol/L Anion Gap (10.00-18.00) mmol/L BUN (9.0-27.0) mg/dL BUN/Creatinine Ratio (12.00-20.00) Ratio POC Glucose (mg/dL) (70-110) mg/dL Total Bilirubin (0.30-1.20) mg/dL C-Reactive Protein (0.00-0.80) mg/dL Total Protein (6.2-8.2) g/dL Albumin (3.8-4.9) g/dL Albumin/Globulin Ratio (1.60-3.17) g/dL Vitamin B12 1303.0 H (200.0-944.0) pg/mL Procalcitonin 0.37 H (0.02-0.09) ng/mL [place] 1.90 H* (0.50-1.20) mmol/L 02/04/22 02/04/22 02/05/22 Range/Units 17:18 20:34 06:02 Chloride 111 H (96-109) mmol/L Carbon Dioxide 18.3 L (20.0-27.5) mmol/L Anion Gap 8.70 L (10.00-18.00) mmol/L BUN 28.2 H (9.0-27.0) mg/dL BUN/Creatinine Ratio 21.69 H (12.00-20.00) Ratio POC Glucose (mg/dL) 145 H 113 H (70-110) mg/dL Total Bilirubin <0.15 L (0.30-1.20) mg/dL C-Reactive Protein 7.60 H (0.00-0.80) mg/dL Total Protein 5.7 L (6.2-8.2) g/dL Albumin 3.5 L (3.8-4.9) g/dL Albumin/Globulin Ratio 1.59 L (1.60-3.17) g/dL Vitamin B12 (200.0-944.0) pg/mL Procalcitonin (0.02-0.09) ng/mL [place] (0.50-1.20) mmol/L Assessment and Plan Assessment: Generalized weakness with transient speech difficulty due to [place] toxicity /metabolic derangement and hypotensive episodes Encephalopathy due to metabolic encephalopathy and lithium toxicity. Acute on chronic hyponatremia and presented with a sodium of 124 Hypotensive episode. Rule out sepsis Leukocytosis and trending down but afebrile. Unsure cause. Rule out sepsis. 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 History of hypertension Plan: [place] level is 1.90 (normal is 0.50-1.20), will defer management to primary team Continue neuro checks. PT and OT are consulted Will defer electrolyte imbalance correction and possible sepsis work-up to the primary team. Primary team consulted I.D. Will defer rest of medical management to the primary team Upon discharge, the patient needs to follow-up with neurologist as outpatient within 1-2 weeks. The plan is discussed with the nurse. Julius Sandoval M.D. Neuro-Hospitalist Time with Patient: Less than 30
[2022-02-05 12:06] LABS: Glucose,Whole Blood 125 mg/dL (70-110)
--- NOTE | 2022-02-05 13:30 | P.PN ---
Subjective Patient the is admitted for multiple falls, lives by himself is on lithium for bipolar disorder does have history of super palsy. Patient is found to be hyponatremic encephalopathic with slurred speech neurology validate the patient and patient is believed to have hypernatremia secondary to lithium toxicity lithium dose was decreased to 60 mg from 900 mg his symptoms did improve patient does have leukocytosis, no clear evidence of infection infectious disease evaluate the patient and the pro-calcitonin is not high enough to say bacterial infection and patient is presently on Rocephin empirically as per infectious disease. Hyponatremia improved PHYSICAL EXAMINATION: GENERAL: The patient is alert and oriented x3, not in any acute distress. Well developed, well nourished. HEENT: Pupils are round and equally reacting to light. EOMI. No scleral icterus. No conjunctival pallor. Normocephalic, atraumatic. No pharyngeal erythema. No th yromegaly. CARDIOVASCULAR: S1 and S2 present. No murmurs, rubs, or gallops. PULMONARY: Chest is clear to auscultation, no wheezing or crackles. ABDOMEN: Soft, nontender, nondistended, normoactive bowel sounds. No palpable organomegaly. MUSCULOSKELETAL: No joint swelling or deformity. EXTREMITIES: No cyanosis, clubbing, or pedal edema. NEUROLOGICAL: Gross neurological examination did not reveal any focal deficits. SKIN: No rashes. 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 Patient was ordered a valid was physical therapy DVT prophylaxis: Lovenox. Objective - Vital Signs Vital signs: Vital Signs Temp 97.4 F L 02/05/22 08:00 Pulse 86 02/05/22 08:00 Resp 18 02/05/22 08:00 BP 94/57 02/05/22 08:00 Pulse Ox 96 02/05/22 08:00 FiO2 Intake & Output 02/04/22 02/05/22 02/05/22 18:59 06:59 18:59 Intake Total 358 Output Total 1775 Balance -1417 Intake: Oral 358 Output: Urine 1775 Other: Voiding Method Bedside Commode Urinal Urinal Urinal # Voids 2 # Bowel Movements 0 - Labs CBC & Chem 7: 02/04/22 05:02 02/05/22 06:02 Labs: Abnormal Lab Results - Last 24 Hours (Table) 02/04/22 02/04/22 02/04/22 Range/Units 05:02 11:59 12:57 Chloride (96-109) mmol/L Carbon Dioxide (20.0-27.5) mmol/L Anion Gap (10.00-18.00) mmol/L BUN (9.0-27.0) mg/dL BUN/Creatinine Ratio (12.00-20.00) Ratio POC Glucose (mg/dL) (70-110) mg/dL Total Bilirubin (0.30-1.20) mg/dL C-Reactive Protein (0.00-0.80) mg/dL Total Protein (6.2-8.2) g/dL Albumin (3.8-4.9) g/dL Albumin/Globulin Ratio (1.60-3.17) g/dL Vitamin B12 1303.0 H (200.0-944.0) pg/mL Procalcitonin 0.37 H (0.02-0.09) ng/mL [place] 1.90 H* (0.50-1.20) mmol/L 02/04/22 02/04/22 02/05/22 Range/Units 17:18 20:34 06:02 Chloride 111 H (96-109) mmol/L Carbon Dioxide 18.3 L (20.0-27.5) mmol/L Anion Gap 8.70 L (10.00-18.00) mmol/L BUN 28.2 H (9.0-27.0) mg/dL BUN/Creatinine Ratio 21.69 H (12.00-20.00) Ratio POC Glucose (mg/dL) 145 H 113 H (70-110) mg/dL Total Bilirubin <0.15 L (0.30-1.20) mg/dL C-Reactive Protein 7.60 H (0.00-0.80) mg/dL Total Protein 5.7 L (6.2-8.2) g/dL Albumin 3.5 L (3.8-4.9) g/dL Albumin/Globulin Ratio 1.59 L (1.60-3.17) g/dL Vitamin B12 (200.0-944.0) pg/mL Procalcitonin (0.02-0.09) ng/mL [place] (0.50-1.20) mmol/L 02/05/22 Range/Units 12:05 Chloride (96-109) mmol/L Carbon Dioxide (20.0-27.5) mmol/L Anion Gap (10.00-18.00) mmol/L BUN (9.0-27.0) mg/dL BUN/Creatinine Ratio (12.00-20.00) Ratio POC Glucose (mg/dL) 125 H (70-110) mg/dL Total Bilirubin (0.30-1.20) mg/dL C-Reactive Protein (0.00-0.80) mg/dL Total Protein (6.2-8.2) g/dL Albumin (3.8-4.9) g/dL Albumin/Globulin Ratio (1.60-3.17) g/dL Vitamin B12 (200.0-944.0) pg/mL Procalcitonin (0.02-0.09) ng/mL [place] (0.50-1.20) mmol/L
[2022-02-05] MEDS: ceFAZolin 3 GM in SODIUM CHLORIDE 0.9% 100 ML IVPB SCH (16:47)
[2022-02-05 17:23] LABS: Glucose,Whole Blood 81 mg/dL (70-110)
[2022-02-05] MEDS: cloZAPine 100 MG TAB PO SCH (20:21)
[2022-02-05] MEDS: LITHIUM CARBONATE 300 MG CAP PO SCH (20:21)
[2022-02-05 22:46] LABS: Glucose,Whole Blood 84 mg/dL (70-110)
[2022-02-06] MEDS: ceFAZolin 3 GM in SODIUM CHLORIDE 0.9% 100 ML IVPB SCH ×3 (00:28→17:28)
[2022-02-06] MEDS: LEVOTHYROXINE 25 MCG TAB PO SCH (05:39)
[2022-02-06 07:25] LABS: Glucose,Whole Blood 93 mg/dL (70-110)
[2022-02-06] MEDS: INSULIN ASPART (NovoLOG) 100 UNIT/ML VIAL SQ SCH ×4 (08:19→22:15)
[2022-02-06] MEDS: TAMSULOSIN 0.4 MG CAP.ER.24H PO SCH (08:52)
[2022-02-06] MEDS: TOPIRAMATE 25 MG TAB PO SCH ×2 (08:53→22:18)
[2022-02-06] MEDS: DULoxetine HCL 60 MG CAPSULE.DR PO SCH ×2 (08:53→22:18)
[2022-02-06] MEDS: busPIRone HCl 10 MG TAB PO SCH ×2 (08:53→22:18)
[2022-02-06] MEDS: PROPRANOLOL LA 60 MG CAP.SA.24H PO SCH (08:53)
[2022-02-06] MEDS: ENOXAPARIN 40 MG/0.4 ML SYRINGE SQ SCH (08:53)
[2022-02-06] MEDS: DOCUSATE 100 MG CAP PO SCH (08:53)
[2022-02-06] MEDS: PRAVASTATIN SODIUM 20 MG TAB PO SCH (08:53)
[2022-02-06 12:17] LABS: Glucose,Whole Blood 96 mg/dL (70-110)
--- NOTE | 2022-02-06 12:49 | P.PN ---
Subjective Progress Note Date: 02/06/22 The patient is seen at bedside and it seems the nurse notified the nurse that patient mentation is improving Per nurse no further events. Today upon seeing the patient his mother accompanied him and she feels his mentation is drastically better compared to initial presentation. He has generalized weakness. It seems he is on [place] for his psychiatric condition. He has bipolar and schizophrenia. Objective - Vital Signs Vital signs: Vital Signs Temp 98.5 F 02/06/22 08:00 Pulse 96 02/06/22 08:00 Resp 16 02/06/22 08:00 BP 110/66 02/06/22 08:00 Pulse Ox 97 02/06/22 08:00 FiO2 Intake & Output 02/05/22 02/06/22 02/06/22 18:59 06:59 18:59 Intake Total 300 200 Output Total 850 Balance -850 300 200 Intake: Oral 300 200 Output: Urine 850 Other: Voiding Method Urinal Urinal Urinal # Voids 0 2 - Exam GENERAL: The patient is lying in bed and is not in acute distress. NEUROLOGICAL: Higher mental function: The patient is more awake today compared to prior examination. Is oriented to self, place. Correctly stated the year but continues to not know the month (he is aware he gets the month wrong). Is able to name objects. Patient is following simple commands. No aphasia and no neglect. Cranial nerves: The pupils are round, equal and reactive to light. Visual merchant are full to confrontation throughout. Extraocular movement is intact no nystagmus is noted. Facial sensation is normal to touch throughout. The facial strength is normal throughout. Tongue is midline and moved [id number] without any difficulty. No dysarthria is noted. Shoulder shrug is normal bilaterally. Motor: Gait is deferred. The strength is left lower extremity is 4. Otherwise 5 over 5 throughout. Decrease bulk over the left lower extremity (stated old). Has negative myoclonus of hand upon extension. Cerebellum: Normal finger to nose bilaterally. Has end action tremor. Sensation: Sensation is normal to touch throughout. Some of the workup during this hospital visit consisted of: Initial white blood cells 18.2 thousand and the repeat is 14.78. Was slightly neutrophilic. Initial sodium is 120 for repeat is 127, creatinine is 1.95 and BUN is 31 repeated the creatinine is 1.6. Initial serum glucose is 77. Last sodium that was low in our system was in 2016 and it was 135. I did not see any prior sodium in our system prior to that. Ammonia level is 20 Vitamin B12: 1303 TSH: 2.30 folate: 10.80 CRP: 7.60 [place] level is 1.90 (normal is 0.50-1.20) U/A is negative for UTI. CT of the head is reported as no acute intracranial process. No significant change from prior examination. Stable remote injuries in the right frontal lobe and the right occipital lobe. Stable cystic enlargement of the anterior horn of the right lateral ventricle which may at relate to the prior trauma versus porencephalic cyst. I personally reviewed the CT of the head and I feel like there is no acute or subacute ischemia there is no intracranial hemorrhage. 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 CT cervical spine was reported as no evidence of cervical spine fracture. Routine EEG is abnormal. The back was SUGGESTIVE of mild to moderate encephalopathy. Otherwise there is no focal slowing, epileptiform discharges or seizure in the EEG. Clinical correlation is recommended Carotid duplex is reported as prescribed plaque with no significant hemodynamic stenosis as visualized. - Labs CBC & Chem 7: 02/04/22 05:02 02/05/22 06:02 Labs: Microbiology - Last 24 Hours (Table) 02/04/22 13:06 Blood Culture - Preliminary Blood No Growth after 24 hours 02/04/22 13:00 Blood Culture - Preliminary Blood No Growth after 24 hours Assessment and Plan Assessment: Generalized weakness with transient speech difficulty due to [place] toxic ity/metabolic derangement and hypotensive episodes Encephalopathy due to metabolic encephalopathy and lithium toxicity--improving Acute on chronic hyponatremia and presented with a sodium of 124 Hypotensive episode. Rule out sepsis Leukocytosis and trending down but afebrile. Unsure cause. Rule out sepsis. 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 History of hypertension Plan: [place] level is 1.90 (normal is 0.50-1.20), will defer management to primary team Continue neuro checks. PT and OT are consulted Will defer electrolyte imbalance correction and possible sepsis work-up to the primary team. Primary team consulted I.D. Will defer rest of medical management to the primary team Upon discharge, the patient needs to follow-up with neurologist as outpatient within 1-2 weeks. The plan is discussed with the patient and his mother (who is at bedside). There is no further neurology work-up. Will sign off. Please reconsult if needed. Julius Sandoval M.D. Neuro-Hospitalist Time with Patient: Less than 30
--- NOTE | 2022-02-06 14:02 | P.PN ---
Subjective Patient the is admitted for multiple falls, lives by himself is on lithium for bipolar disorder does have history of super palsy. Patient is found to be hyponatremic encephalopathic with slurred speech neurology validate the patient and patient is believed to have hypernatremia secondary to lithium toxicity lithium dose was decreased to 60 mg from 900 mg his symptoms did improve patient does have leukocytosis, no clear evidence of infection infectious disease evaluate the patient and the pro-calcitonin is not high enough to say bacterial infection and patient is presently on Rocephin empirically as per infectious disease. Hyponatremia improved 02/06/2022 Patient is better regarding his weakness and the serum sodium improved, creatinine improved patient will need us placement at subacute rehabilitation Constitutional: Denied any fatigue denied any fever. Cardio vascular: denied any chest pain, palpitations Gastrointestinal denied any nausea vomiting Pulmonary: Denied any shortness of breath cough Neurologic denied any new focal deficits All inpatient medications were reviewed and appropriate changes in these medications as dictated in the interval history and assessment and plan. PHYSICAL EXAMINATION: GENERAL: The patient is alert and oriented x3, not in any acute distress. Well developed, well nourished. HEENT: Pupils are round and equally reacting to light. EOMI. No scleral icterus. No conjunctival pallor. Normocephalic, atraumatic. No pharyngeal erythema. No thyromegaly. CARDIOVASCULAR: S1 and S2 present. No murmurs, rubs, or gallops. PULMONARY: Chest is clear to auscultation, no wheezing or crackles. ABDOMEN: Soft, nontender, nondistended, normoactive bowel sounds. No palpable organomegaly. MUSCULOSKELETAL: No joint swelling or deformity. EXTREMITIES: No cyanosis, clubbing, or pedal edema. NEUROLOGICAL: Gross neurological examination did not reveal any focal deficits. SKIN: No rashes. Assessment and plan -Metabolic encephalopathy secondary to lithium toxicity which improved. 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 -Chronic nonessential tremor DVT prophylaxis: Lovenox. Objective - Vital Signs Vital signs: Vital Signs Temp 98.5 F 02/06/22 08:00 Pulse 96 02/06/22 08:00 Resp 16 02/06/22 08:00 BP 110/66 02/06/22 08:00 Pulse Ox 97 02/06/22 08:00 FiO2 Intake & Output 02/05/22 02/06/22 02/06/22 18:59 06:59 18:59 Intake Total 300 318 Output Total 850 Balance -850 300 318 Intake: Oral 300 318 Output: Urine 850 Other: Voiding Method Urinal Urinal Urinal # Voids 0 2 - Labs CBC & Chem 7: 02/04/22 05:02 02/05/22 06:02 Labs: Microbiology - Last 24 Hours (Table) 02/04/22 13:06 Blood Culture - Preliminary Blood No Growth after 24 hours 02/04/22 13:00 Blood Culture - Preliminary Blood No Growth after 24 hours
[2022-02-06 17:23] LABS: Glucose,Whole Blood 95 mg/dL (70-110)
[2022-02-06] MEDS: SODIUM CHLORIDE 0.9% 1,000 ML IV SCH (18:30)
[2022-02-06 21:31] LABS: Glucose,Whole Blood 93 mg/dL (70-110)
[2022-02-06] MEDS: LITHIUM CARBONATE 300 MG CAP PO SCH (22:17)
[2022-02-06] MEDS: cloZAPine 100 MG TAB PO SCH (22:17)
--- NOTE | 2022-02-06 22:30 | P.PN ---
Subjective Progress Note Date: 02/05/22 Principal diagnosis: Leukocytosis Patient is a 46-year-old male with a past medical history significant for cerebral palsy presenting to the hospital with a fall and syncopal episode patient did have extensive bruising to bilateral knee area and did have some elevated white count and no fever and concern for possible cellulitis of bilateral knee area On today's evaluation that is 02/05/2022, the patient denies having any fever or any chills, the patient is breathing comfortably. She did have occasional cough but no sputum production no abdominal pain no diarrhea denies any worsening pain to bilateral knee Objective - Vital Signs Vital signs: Vital Signs Temp 97.4 F L 02/05/22 08:00 Pulse 86 02/05/22 08:00 Resp 18 02/05/22 08:00 BP 94/57 02/05/22 08:00 Pulse Ox 96 02/05/22 08:00 FiO2 Intake & Output 02/04/22 02/05/22 02/05/22 18:59 06:59 18:59 Intake Total 358 Output Total 1775 Balance -1417 Intake: Oral 358 Output: Urine 1775 Other: Voiding Method Bedside Commode Urinal Urinal Urinal # Voids 2 # Bowel Movements 0 - Exam GENERAL DESCRIPTION: Middle-age male lying in bed in no distress RESPIRATORY SYSTEM: Unlabored breathing , decreased breath sounds at bases HEART: S1 S2 regular rate and rhythm , ABDOMEN: Soft , no tenderness EXTREMITIES: Bilateral knee area with bruising and some redness no skin breakdown or drainage - Labs CBC & Chem 7: 02/04/22 05:02 02/05/22 06:02 Labs: Abnormal Lab Results - Last 24 Hours (Table) 02/04/22 02/04/22 02/04/22 Range/Units 05:02 11:59 12:57 Chloride (96-109) mmol/L Carbon Dioxide (20.0-27.5) mmol/L Anion Gap (10.00-18.00) mmol/L BUN (9.0-27.0) mg/dL BUN/Creatinine Ratio (12.00-20.00) Ratio POC Glucose (mg/dL) (70-110) mg/dL Total Bilirubin (0.30-1.20) mg/dL C-Reactive Protein (0.00-0.80) mg/dL Total Protein (6.2-8.2) g/dL Albumin (3.8-4.9) g/dL Albumin/Globulin Ratio (1.60-3.17) g/dL Vitamin B12 1303.0 H (200.0-944.0) pg/mL Procalcitonin 0.37 H (0.02-0.09) ng/mL [place] 1.90 H* (0.50-1.20) mmol/L 02/04/22 02/04/22 02/05/22 Range/Units 17:18 20:34 06:02 Chloride 111 H (96-109) mmol/L Carbon Dioxide 18.3 L (20.0-27.5) mmol/L Anion Gap 8.70 L (10.00-18.00) mmol/L BUN 28.2 H (9.0-27.0) mg/dL BUN/Creatinine Ratio 21.69 H (12.00-20.00) Ratio POC Glucose (mg/dL) 145 H 113 H (70-110) mg/dL Total Bilirubin <0.15 L (0.30-1.20) mg/dL C-Reactive Protein 7.60 H (0.00-0.80) mg/dL Total Protein 5.7 L (6.2-8.2) g/dL Albumin 3.5 L (3.8-4.9) g/dL Albumin/Globulin Ratio 1.59 L (1.60-3.17) g/dL Vitamin B12 (200.0-944.0) pg/mL Procalcitonin (0.02-0.09) ng/mL [place] (0.50-1.20) mmol/L Assessment and Plan (1) Leukocytosis Current Visit: Yes Status: Acute Code(s): D72.829 - ELEVATED WHITE BLOOD CELL COUNT, UNSPECIFIED SNOMED Code(s): 038178719 Plan: 1patient presented to hospital with a syncopal episode patient did have a significant scratching to bilateral knee area and mild redness with concern for possible cellulitis patient did have elevated white count however also elevated BUN and creatinine and with hydration patient white count has trended down with a question of possible reactive patient with no fever we will make infection to be less likely but not entirely excluded. 2blood cultures have been obtained which are currently pending CRP procalcitonin wound mildly elevated. 3with concern for possible cellulitis to bilateral knee area, will switch antibiotic therapy to cefazolin and monitor clinical course closely Time with Patient: Less than 30
--- NOTE | 2022-02-06 22:31 | P.PN ---
Subjective Progress Note Date: 02/06/22 Principal diagnosis: Leukocytosis Patient is a 46-year-old male with a past medical history significant for cerebral palsy presenting to the hospital with a fall and syncopal episode patient did have extensive bruising to bilateral knee area and did have some elevated white count and no fever and concern for possible cellulitis of bilateral knee area On today's evaluation that is 02/06/2022, the patient continues to be afebrile, the patient is breathing comfortably on room air, the patient did have occasional cough but no sputum production, the patient denies abdominal pain no diarrhea denies any worsening pain to bilateral knee Objective - Vital Signs Vital signs: Vital Signs Temp 97.7 F 02/06/22 14:00 Pulse 55 L 02/06/22 14:00 Resp 16 02/06/22 14:00 BP 118/79 02/06/22 14:00 Pulse Ox 95 02/06/22 14:00 FiO2 Intake & Output 02/05/22 02/06/22 02/06/22 18:59 06:59 18:59 Intake Total 300 318 Output Total 850 Balance -850 300 318 Intake: Oral 300 318 Output: Urine 850 Other: Voiding Method Urinal Urinal Urinal # Voids 0 2 - Exam GENERAL DESCRIPTION: Middle-age male lying in bed in no distress RESPIRATORY SYSTEM: Unlabored breathing , decreased breath sounds at bases HEART: S1 S2 regular rate and rhythm , ABDOMEN: Soft , no tenderness EXTREMITIES: Bilateral knee area with bruising and some redness no skin breakdown or drainage - Labs CBC & Chem 7: 02/04/22 05:02 02/05/22 06:02 Labs: Microbiology - Last 24 Hours (Table) 02/04/22 13:06 Blood Culture - Preliminary Blood No Growth after 48 hours 02/04/22 13:00 Blood Culture - Preliminary Blood No Growth after 48 hours Assessment and Plan (1) Leukocytosis Current Visit: Yes Status: Acute Code(s): D72.829 - ELEVATED WHITE BLOOD CELL COUNT, UNSPECIFIED SNOMED Code(s): 023294991 Plan: 1patient presented to hospital with a syncopal episode patient did have a significant scratching to bilateral knee area and mild redness with concern for possible cellulitis patient did have elevated white count however also elevated BUN and creatinine and with hydration patient white count has trended down with a question of possible reactive patient with no fever we will make infection to be less likely but not entirely excluded. 2blood cultures have been obtained which are currently pending CRP procalcitonin wound mildly elevated. 3with concern for possible cellulitis to bilateral knee area, giving marked the area of the redness and continue with cefazolin recheck his white count with a.m. labs Time with Patient: Less than 30
[2022-02-07] MEDS: ceFAZolin 3 GM in SODIUM CHLORIDE 0.9% 100 ML IVPB SCH ×2 (01:49→08:20)
[2022-02-07] MEDS: SODIUM CHLORIDE 0.9% 1,000 ML IV SCH ×2 (03:47→18:36)
[2022-02-07] MEDS: LEVOTHYROXINE 25 MCG TAB PO SCH (06:00)
[2022-02-07 07:22] LABS: Glucose,Whole Blood 90 mg/dL (70-110)
[2022-02-07] MEDS: INSULIN ASPART (NovoLOG) 100 UNIT/ML VIAL SQ SCH ×4 (07:59→21:57)
[2022-02-07] MEDS: ENOXAPARIN 40 MG/0.4 ML SYRINGE SQ SCH (08:20)
[2022-02-07] MEDS: DOCUSATE 100 MG CAP PO SCH (08:20)
[2022-02-07] MEDS: PROPRANOLOL LA 60 MG CAP.SA.24H PO SCH (08:20)
[2022-02-07] MEDS: busPIRone HCl 10 MG TAB PO SCH ×2 (08:20→21:56)
[2022-02-07] MEDS: TAMSULOSIN 0.4 MG CAP.ER.24H PO SCH (08:21)
[2022-02-07] MEDS: DULoxetine HCL 60 MG CAPSULE.DR PO SCH ×2 (08:21→21:57)
[2022-02-07] MEDS: PRAVASTATIN SODIUM 20 MG TAB PO SCH (08:21)
[2022-02-07] MEDS: TOPIRAMATE 25 MG TAB PO SCH ×2 (08:21→21:57)
[2022-02-07 09:13] LABS: Basophils # (A) 0.09 X 10*3/uL (0.00-0.10); Basophils % (A) 0.7 %; Eosinophils # (A) 0.18 X 10*3/uL (0.04-0.35); Eosinophils % (A) 1.3 %; HCT 37.3 % (39.6-50.0); HGB 12.2 g/dL (13.0-17.0); Immature Grans, Automated 3.5 %; Lymphocytes # (A) 2.54 X 10*3/uL (0.90-5.00); Lymphocytes % (A) 18.5 %; MCHC 32.7 g/dL (32.0-37.0); MCV 94.9 fL (80.0-97.0); Mean Platelet Volume 9.4 fL (9.5-12.2); Monocytes # (A) 1.04 X 10*3/uL (0.20-1.00); Monocytes % (A) 7.6 %; NRBC Per 100 WBC 0 /100 WBCS (0.0-0.0); Neutrophils # (A) 9.42 X 10*3/uL (1.80-7.70); Neutrophils % (A) 68.4 %; Platelet Count 403 X 10*3/uL (140-440); RBC 3.93 X 10*6/uL (4.40-5.60); RDW 13.8 % (11.5-14.5); WBC 13.75 X 10*3/uL (4.50-10.00)
[2022-02-07 09:56] LABS: ALT 17 U/L (10-49); AST 22 U/L (14-35); African American GFR (CKD) 106.4 (60.0-200.0); Albumin 3.4 g/dL (3.8-4.9); Albumin/Globulin Ratio 1.58 (1.60-3.17); Alkaline Phosphatase 84 U/L (41-126); BUN/Creat Ratio 12.04 Ratio (12.00-20.00); Blood Urea Nitrogen 11.9 mg/dL (9.0-27.0); Calcium 9.1 mg/dL (8.7-10.3); Chloride 112 mmol/L (96-109); Globulin 2.1 g/dL (1.6-3.3); Glucose 96 mg/dL (70-110); Non-African American GFR(CKD) 91.8 (60.0-200.0); Potassium 4.1 mmol/L (3.5-5.5); Sodium 141 mmol/L (135-145); Total Bilirubin <0.15 mg/dL (0.30-1.20); Total Protein 5.5 g/dL (6.2-8.2)
[2022-02-07] MEDS ORDERED: VANCOMYCIN IV PER PHARMACY 1 EACH MISC MISCELLANE PRN (10:31)
[2022-02-07 12:20] LABS: Glucose,Whole Blood 88 mg/dL (70-110)
[2022-02-07] MEDS: VANCOMYCIN 2,000 MG in SODIUM CHLORIDE 0.9% 500 ML 500 ML IVPB SCH (13:41)
[2022-02-07 16:50] LABS: Glucose,Whole Blood 105 mg/dL (70-110)
[2022-02-07] MEDS: NICOTINE 14MG/24HR PATCH TRANSDERM SCH (17:17)
[2022-02-07 21:07] LABS: Glucose,Whole Blood 83 mg/dL (70-110)
[2022-02-07] MEDS: cloZAPine 100 MG TAB PO SCH (21:56)
[2022-02-07] MEDS: LITHIUM CARBONATE 300 MG CAP PO SCH (21:57)
[2022-02-07] MEDS: polyethylene glycoL 3350 17 GM POWD.PACK PO SCH (21:57)
--- NOTE | 2022-02-07 21:58 | P.PN ---
Subjective Progress Note Date: 02/07/22 His WBC is trending down to 13k, lithium level normalized and pt restarted on 600 mg qhs. He has remained afebrile, blood cultures no growth. Objective - Vital Signs Vital signs: Vital Signs Temp 97.8 F 02/07/22 13:14 Pulse 75 02/07/22 13:14 Resp 14 02/07/22 13:14 BP 135/83 02/07/22 13:14 Pulse Ox 97 02/07/22 13:14 FiO2 Intake & Output 02/07/22 02/07/22 02/08/22 06:59 18:59 06:59 Intake Total 236 Output Total 550 1575 Balance -444 -2809 Intake: Oral 236 Output: Urine 550 1575 Other: Voiding Method Urinal Urinal # Bowel Movements 0 - Exam Gen: well developed, no acute distress CV: RRR, no murmur Lungs: Normal effort, clear throughout Skin: Bilateral knees with extensive abrasion and erythema, no drainage - Labs CBC & Chem 7: 02/07/22 06:06 02/07/22 06:06 Labs: Abnormal Lab Results - Last 24 Hours (Table) 02/07/22 02/07/22 Range/Units 06:06 06:06 WBC 13.75 H (4.50-10.00) X 10*3/uL RBC 3.93 L (4.40-5.60) X 10*6/uL Hgb 12.2 L (13.0-17.0) g/dL Hct 37.3 L (39.6-50.0) % MPV 9.4 L (9.5-12.2) fL Immature Gran # 0.48 H (0.00-0.04) X 10*3/uL Neutrophils # 9.42 H (1.80-7.70) X 10*3/uL Monocytes # 1.04 H (0.20-1.00) X 10*3/uL Chloride 112 H (96-109) mmol/L Carbon Dioxide 19.0 L (20.0-27.5) mmol/L Total Bilirubin <0.15 L (0.30-1.20) mg/dL C-Reactive Protein 3.90 H (0.00-0.80) mg/dL Total Protein 5.5 L (6.2-8.2) g/dL Albumin 3.4 L (3.8-4.9) g/dL Albumin/Globulin Ratio 1.58 L (1.60-3.17) g/dL Microbiology - Last 24 Hours (Table) 02/04/22 13:06 Blood Culture - Preliminary Blood No Growth after 72 hours 02/04/22 13:00 Blood Culture - Preliminary Blood No Growth after 72 hours Assessment and Plan Plan: Switch kefzol to vancomycin per ID. Restart lithium 600 mg qhs. Add miralax. Discharge planning in progress
[2022-02-08] MEDS: VANCOMYCIN 2,000 MG in SODIUM CHLORIDE 0.9% 500 ML 500 ML IVPB SCH ×3 (00:23→21:44)
[2022-02-08] MEDS: SODIUM CHLORIDE 0.9% 1,000 ML IV SCH ×2 (04:08→19:57)
[2022-02-08] MEDS: LEVOTHYROXINE 25 MCG TAB PO SCH (05:30)
[2022-02-08 07:12] LABS: Glucose,Whole Blood 90 mg/dL (70-110)
[2022-02-08] MEDS: INSULIN ASPART (NovoLOG) 100 UNIT/ML VIAL SQ SCH ×4 (07:34→20:52)
[2022-02-08] MEDS: PRAVASTATIN SODIUM 20 MG TAB PO SCH (07:36)
[2022-02-08] MEDS: PROPRANOLOL LA 60 MG CAP.SA.24H PO SCH (07:36)
[2022-02-08] MEDS: NICOTINE 14MG/24HR PATCH TRANSDERM SCH (07:36)
[2022-02-08] MEDS: TOPIRAMATE 25 MG TAB PO SCH ×2 (07:36→21:43)
[2022-02-08] MEDS: DULoxetine HCL 60 MG CAPSULE.DR PO SCH ×2 (07:36→21:43)
[2022-02-08] MEDS: DOCUSATE 100 MG CAP PO SCH (07:36)
[2022-02-08] MEDS: TAMSULOSIN 0.4 MG CAP.ER.24H PO SCH (07:36)
[2022-02-08] MEDS: ENOXAPARIN 40 MG/0.4 ML SYRINGE SQ SCH (07:37)
[2022-02-08] MEDS: busPIRone HCl 10 MG TAB PO SCH ×2 (07:37→21:43)
--- NOTE | 2022-02-08 08:52 | P.PN ---
Subjective Progress Note Date: 02/07/22 Principal diagnosis: Leukocytosis Patient is a 46-year-old male with a past medical history significant for cerebral palsy presenting to the hospital with a fall and syncopal episode patient did have extensive bruising to bilateral knee area and did have some elevated white count and no fever and concern for possible cellulitis of bilateral knee area On today's evaluation that is 02/07/2022, the patient remains to be afebrile, the patient is breathing comfortably on room air, the patient still complaining of occasional cough but no sputum production, the patient denies abdominal pain no diarrhea the patient denies any worsening pain to bilateral knee Objective - Vital Signs Vital signs: Vital Signs Temp 97.4 F L 02/07/22 08:00 Pulse 85 02/07/22 08:00 Resp 14 02/07/22 08:00 BP 103/69 02/07/22 08:00 Pulse Ox 96 02/07/22 08:00 FiO2 Intake & Output 02/06/22 02/07/22 02/07/22 18:59 06:59 18:59 Intake Total 518 0 Output Total 550 500 Balance 518 -550 -500 Intake: Oral 518 0 Output: Urine 550 500 Other: Voiding Method Urinal Urinal Urinal # Voids 0 - Exam GENERAL DESCRIPTION: Middle-age male lying in bed in no distress RESPIRATORY SYSTEM: Unlabored breathing , decreased breath sounds at bases HEART: S1 S2 regular rate and rhythm , ABDOMEN: Soft , no tenderness EXTREMITIES: Bilateral knee area with bruising and some redness no skin breakdown or drainage - Labs CBC & Chem 7: 02/07/22 06:06 02/07/22 06:06 Labs: Abnormal Lab Results - Last 24 Hours (Table) 02/07/22 02/07/22 Range/Units 06:06 06:06 WBC 13.75 H (4.50-10.00) X 10*3/uL RBC 3.93 L (4.40-5.60) X 10*6/uL Hgb 12.2 L (13.0-17.0) g/dL Hct 37.3 L (39.6-50.0) % MPV 9.4 L (9.5-12.2) fL Immature Gran # 0.48 H (0.00-0.04) X 10*3/uL Neutrophils # 9.42 H (1.80-7.70) X 10*3/uL Monocytes # 1.04 H (0.20-1.00) X 10*3/uL Chloride 112 H (96-109) mmol/L Carbon Dioxide 19.0 L (20.0-27.5) mmol/L Total Bilirubin <0.15 L (0.30-1.20) mg/dL C-Reactive Protein 3.90 H (0.00-0.80) mg/dL Total Protein 5.5 L (6.2-8.2) g/dL Albumin 3.4 L (3.8-4.9) g/dL Albumin/Globulin Ratio 1.58 L (1.60-3.17) g/dL Microbiology - Last 24 Hours (Table) 02/04/22 13:06 Blood Culture - Preliminary Blood No Growth after 48 hours 02/04/22 13:00 Blood Culture - Preliminary Blood No Growth after 48 hours Assessment and Plan (1) Leukocytosis Current Visit: Yes Status: Acute Code(s): D72.829 - ELEVATED WHITE BLOOD CELL COUNT, UNSPECIFIED SNOMED Code(s): 849890746 Plan: 1patient presented to hospital with a syncopal episode patient did have a significant scratching to bilateral knee area and mild redness with concern for possible cellulitis patient did have elevated white count however also elevated BUN and creatinine and with hydration patient white count has trended down with a question of possible reactive patient with no fever we will make infection to be less likely but not entirely excluded. 2blood cultures have been obtained which are currently pending CRP procalcitonin wound mildly elevated. 3with concern for possible cellulitis to bilateral knee area, with no significant improvement with the cefazolin we will switch to vancomycin and monitor clinical response Time with Patient: Less than 30
[2022-02-08 09:32] LABS: African American GFR (CKD) 132.1 (60.0-200.0)
[2022-02-08 12:02] LABS: Glucose,Whole Blood 106 mg/dL (70-110)
[2022-02-08 19:11] LABS: Glucose,Whole Blood 88 mg/dL (70-110)
[2022-02-08 20:36] LABS: Glucose,Whole Blood 103 mg/dL (70-110)
[2022-02-08] MEDS: cloZAPine 100 MG TAB PO SCH (21:43)
[2022-02-08] MEDS: polyethylene glycoL 3350 17 GM POWD.PACK PO SCH (21:43)
[2022-02-08] MEDS: LITHIUM CARBONATE 300 MG CAP PO SCH (21:43)
[2022-02-09] MEDS: LEVOTHYROXINE 25 MCG TAB PO SCH (05:15)
[2022-02-09 07:19] LABS: Glucose,Whole Blood 91 mg/dL (70-110)
--- NOTE | 2022-02-09 08:31 | P.PN ---
Subjective Progress Note Date: 02/08/22 He remains afebrile, blood cultures no growth, he is on vancomycin per ID for his bilateral knee cellulitis. Mentation is at baseline. No chills, chest pain, shortness of breath. Objective - Vital Signs Vital signs: Vital Signs Temp 98.8 F 02/09/22 07:38 Pulse 96 02/09/22 07:38 Resp 20 02/09/22 07:38 BP 151/85 02/09/22 07:38 Pulse Ox 95 02/09/22 07:38 FiO2 21 02/08/22 19:08 Intake & Output 02/08/22 02/09/22 02/09/22 18:59 06:59 18:59 Intake Total 1000 Output Total 625 Balance 375 Intake: Intake, IV Titration 500 Amount Vancomycin 2,000 mg In 500 Sodium Chloride 0.9% 500 ml 500 ml @ 167 mls/hr IVPB Q12H [facility] Rx#: [id number] Oral 500 Output: Urine 625 Other: Voiding Method Urinal Bedside Commode Urinal - Exam Gen: well developed, no acute distress CV: RRR, no murmur Lungs: Normal effort, clear throughout Skin: Bilateral knees with extensive abrasion and erythema, no drainage - Labs CBC & Chem 7: 02/07/22 06:06 02/08/22 06:21 Labs: Microbiology - Last 24 Hours (Table) 02/04/22 13:06 Blood Culture - Preliminary Blood No Growth after 96 hours 02/04/22 13:00 Blood Culture - Preliminary Blood No Growth after 96 hours Assessment and Plan Plan: Continue with vancomycin per ID. Continue lithium 600 mg qhs. Discharge planning in progress, abx per ID
[2022-02-09 09:20] LABS: Basophils # (A) 0.09 X 10*3/uL (0.00-0.10); Basophils % (A) 0.8 %; Eosinophils # (A) 0.24 X 10*3/uL (0.04-0.35); HCT 37.7 % (39.6-50.0); HGB 12.2 g/dL (13.0-17.0); Lymphocytes # (A) 2.39 X 10*3/uL (0.90-5.00); Lymphocytes % (A) 20.4 %; MCH 30.6 pg (27.0-32.0); MCHC 32.4 g/dL (32.0-37.0); MCV 94.5 fL (80.0-97.0); Mean Platelet Volume 9.6 fL (9.5-12.2); Monocytes # (A) 1.18 X 10*3/uL (0.20-1.00); Monocytes % (A) 10.1 %; NRBC Per 100 WBC 0 /100 WBCS (0.0-0.0); Neutrophils # (A) 7.47 X 10*3/uL (1.80-7.70); Neutrophils % (A) 63.7 %; Platelet Count 422 X 10*3/uL (140-440); RBC 3.99 X 10*6/uL (4.40-5.60); RDW 13.8 % (11.5-14.5); WBC 11.72 X 10*3/uL (4.50-10.00)
[2022-02-09 09:34] LABS: African American GFR (CKD) 132.1 (60.0-200.0); Anion Gap 9.1 mmol/L (10.00-18.00); BUN/Creat Ratio 11.57 Ratio (12.00-20.00); Blood Urea Nitrogen 8.1 mg/dL (9.0-27.0); C Reactive Protein 1.3 mg/dL (0.00-0.80); Carbon Dioxide 21.9 mmol/L (20.0-27.5); Potassium 4.2 mmol/L (3.5-5.5)
[2022-02-09] MEDS: INSULIN ASPART (NovoLOG) 100 UNIT/ML VIAL SQ SCH ×2 (10:05→13:40)
[2022-02-09] MEDS: busPIRone HCl 10 MG TAB PO SCH (10:05)
[2022-02-09] MEDS: ENOXAPARIN 40 MG/0.4 ML SYRINGE SQ SCH (10:06)
[2022-02-09] MEDS: DULoxetine HCL 60 MG CAPSULE.DR PO SCH (10:06)
[2022-02-09] MEDS: DOCUSATE 100 MG CAP PO SCH (10:06)
[2022-02-09] MEDS: PRAVASTATIN SODIUM 20 MG TAB PO SCH (10:06)
[2022-02-09] MEDS: PROPRANOLOL LA 60 MG CAP.SA.24H PO SCH (10:07)
[2022-02-09] MEDS: TAMSULOSIN 0.4 MG CAP.ER.24H PO SCH (10:07)
[2022-02-09] MEDS: NICOTINE 14MG/24HR PATCH TRANSDERM SCH (10:08)
[2022-02-09] MEDS: TOPIRAMATE 25 MG TAB PO SCH (10:10)
--- NOTE | 2022-02-09 11:36 | P.DS ---
Providers Date of admission: 02/03/22 16:01 Expected date of discharge: 02/09/22 Attending physician: Luis Antonio Torres MD Consults: 02/03/22 16:00 Consult Physician Urgent Consulting Provider: Julius Sandoval Consult Reason/Comments: slurred speach, resolved Do you want consulting provider notified?: Yes 02/04/22 12:39 Consult Physician Routine Consulting Provider: Nir Bhardwaj Consult Reason/Comments: elevated wbc, possible sepsis risk Do you want consulting provider notified?: Yes Primary care physician: Katherine Sexton Patient Condition at Discharge: Stable Plan - Discharge Summary Discharge Rx Participant: Yes New Discharge Prescriptions: New Nicotine 14Mg/24Hr Patch [Habitrol] 1 patch TRANSDERM DAILY patch polyethylene glycoL 3350 [Miralax] 17 gm PO HS packet Continue lisinopriL [Prinivil] 20 mg PO DAILY Albuterol Inhaler [Ventolin Hfa Inhaler] 1 - 2 puff INHALATION RT-Q6H PRN PRN Reason: Shortness Of Breath Mirabegron [Myrbetriq] 50 mg PO HS Semaglutide [Ozempic] 0.25 - 0.5 mg SQ SA [place] Carbonate 900 mg PO HS Fluticasone Nasal [place] [Flonase Nasal [place]] 1 spray EA NOSTRIL BID PRN PRN Reason: Allergy Symptoms DULoxetine HCL [Cymbalta] 60 mg PO BID cloZAPine [Clozaril] 250 mg PO HS Topiramate 50 mg PO BID Docusate [Colace] 100 mg PO DAILY Propranolol LA [Inderal LA] 60 mg PO DAILY Pravastatin Sodium [Pravachol] 20 mg PO DAILY hydrOXYzine pamoate [hydrOXYzine PAMOATE] 25 mg PO TID PRN PRN Reason: Anxiety Levothyroxine Sodium [Synthroid] 25 mcg PO DAILY busPIRone HCL [Buspar] 30 mg PO BID Tamsulosin [Flomax] 0.4 mg PO DAILY Discontinued Diclofenac Sodium [Voltaren] 75 mg PO BID Discharge Medication List Albuterol Inhaler [Ventolin Hfa Inhaler] 1 - 2 puff INHALATION RT-Q6H PRN 10/07/16 [History] Mirabegron [Myrbetriq] 50 mg PO HS 10/07/16 [History] lisinopriL [Prinivil] 20 mg PO DAILY 10/07/16 [History] DULoxetine HCL [Cymbalta] 60 mg PO BID 02/03/22 [History] Docusate [Colace] 100 mg PO DAILY 02/03/22 [History] Fluticasone Nasal [place] [Flonase Nasal [place]] 1 spray EA NOSTRIL BID PRN 02/03/22 [History] Levothyroxine Sodium [Synthroid] 25 mcg PO DAILY 02/03/22 [History] [place] Carbonate 900 mg PO HS 02/03/22 [History] Pravastatin Sodium [Pravachol] 20 mg PO DAILY 02/03/22 [History] Propranolol LA [Inderal LA] 60 mg PO DAILY 02/03/22 [History] Semaglutide [Ozempic] 0.25 - 0.5 mg SQ SA 02/03/22 [History] Tamsulosin [Flomax] 0.4 mg PO DAILY 02/03/22 [History] Topiramate 50 mg PO BID 02/03/22 [History] busPIRone HCL [Buspar] 30 mg PO BID 02/03/22 [History] cloZAPine [Clozaril] 250 mg PO HS 02/03/22 [History] hydrOXYzine pamoate [hydrOXYzine PAMOATE] 25 mg PO TID PRN 02/03/22 [History] Nicotine 14Mg/24Hr Patch [Habitrol] 1 patch TRANSDERM DAILY patch 02/09/22 [Rx] polyethylene glycoL 3350 [Miralax] 17 gm PO HS packet 02/09/22 [Rx] Follow up Appointment(s)/Referral(s): Luis Antonio Torres MD [STAFF PHYSICIAN] - 1 Week (after dc from [facility]) Activity/Diet/Wound Care/Special Instructions: Tu LANDERSF CBC,BMP in 3 days
[2022-02-09] MEDS: SODIUM CHLORIDE 0.9% 1,000 ML IV SCH (11:45)
[2022-02-09] MEDS: VANCOMYCIN 2,000 MG in SODIUM CHLORIDE 0.9% 500 ML 500 ML IVPB SCH ×2 (11:46→13:40)
[2022-02-09 12:33] LABS: Glucose,Whole Blood 85 mg/dL (70-110)
[2022-02-09 13:24] VITALS: BP 135/80; PULSE 68; RESP 20; TEMP 98.2
[2022-02-10] MEDS ORDERED: VANCOMYCIN TROUGH DUE 1 EACH MISC MISCELLANE ONE (10:00)
== END 2022-02-09 13:50 | DRG 643 ==
LOC: EC 10:11 → 5NMEDONC 16:01 → 6NMEDSUR 17:38
PROVIDERS: ADMIT Family Medicine; ATTEND Family Medicine
DX: E22.2 Syndrome of inappropriate secretion of antidiuretic hormone (principal); G92.8 Other toxic encephalopathy; L03.116 Cellulitis of left lower limb; L03.115 Cellulitis of right lower limb; E86.0 Dehydration; T43.595A Adverse effect of other antipsychotics and neuroleptics, initial encounter; F25.0 Schizoaffective disorder, bipolar type; I10 Essential (primary) hypertension; J45.909 Unspecified asthma, uncomplicated; N40.0 Benign prostatic hyperplasia without lower urinary tract symptoms; R53.1 Weakness; E11.9 Type 2 diabetes mellitus without complications; G80.9 Cerebral palsy, unspecified; G25.2 Other specified forms of tremor; F41.0 Panic disorder [episodic paroxysmal anxiety]; S80.01XA Contusion of right knee, initial encounter; R29.6 Repeated falls; S80.02XA Contusion of left knee, initial encounter; W18.30XA Fall on same level, unspecified, initial encounter; Z79.82 Long term (current) use of aspirin; Z79.890 Hormone replacement therapy; Z79.899 Other long term (current) drug therapy; Z87.891 Personal history of nicotine dependence
CPT/HCPCS: 36415; 70450; 71046; 72125; 80048; 80053; 80178; 81003; 82140; 82565; 82607; 82746; 84145; 84443; 84484; 85025; 85610; 85730; 86140; 87040; 93005; 93880; 94760; 95816; 99285

== ENCOUNTER 2022-09-20 13:59 | Emergency (ER) | payer MEDICARE, OTHER ==
--- NOTE | 2022-09-20 14:24 | ED ---
General Adult HPI <Lillian Rivera - Last Filed: 09/20/22 14:24> <Pamela Be - Last Filed: 09/20/22 19:29> - General Stated complaint: dizzy and arm pain Time Seen by Provider: 09/20/22 14:21 - History of Present Illness Initial comments: 47-year-old male with no significant past medical history presents the emergency department via EMS with a chief complaint of dizziness that started 4 days ago. Patient is also complaining of "burning in his chest. " (Lillian Rivera) Patient is a 47-year-old male who presents to the emergency department for lightheadedness. It started approximately 3 days ago. Patient states he feels lightheaded when he stands up. He reports mild shortness of breath and chest burning. He does admit to history of GERD. He also complains of bilateral bicep pain. He denies any recent lifting or injury. He denies nausea, vomiting. Denies leg pain and swelling. Denies recent falls and head injury. Denies history of DVT and PE. (Pamela Be) - Related Data Home Medications Medication Instructions Recorded Confirmed Albuterol Inhaler [Ventolin Hfa 1 - 2 puff INHALATION RT-Q6H PRN 10/07/1606/26 Inhaler] Mirabegron [Myrbetriq] 50 mg PO HS 10/07/16 02/03/22 lisinopriL [Prinivil] 20 mg PO DAILY 10/07/16 02/03/22 DULoxetine HCL [Cymbalta] 60 mg PO BID 02/03/22 02/03/22 Docusate [Colace] 100 mg PO DAILY 02/03/22 02/03/22 Fluticasone Nasal [place] [Flonase 1 spray EA NOSTRIL BID PRN 02/03/22 02/03/22 Nasal [place]] Levothyroxine Sodium [Synthroid] 25 mcg PO DAILY 02/03/22 02/03/22 Pravastatin Sodium [Pravachol] 20 mg PO DAILY 02/03/22 02/03/22 Propranolol LA [Inderal LA] 60 mg PO DAILY 02/03/22 02/03/22 Semaglutide [Ozempic] 0.25 - 0.5 mg SQ SA 02/03/22 02/04/22 Tamsulosin [Flomax] 0.4 mg PO DAILY 02/03/22 02/03/22 Topiramate 50 mg PO BID 02/03/22 02/03/22 busPIRone HCL [Buspar] 30 mg PO BID 02/03/22 02/03/22 cloZAPine [Clozaril] 250 mg PO HS 02/03/22 02/03/22 hydrOXYzine pamoate [hydrOXYzine 25 mg PO TID PRN 02/03/22 02/03/22 PAMOATE] Previous Rx's Medication Instructions Recorded Doxycycline Hyclate 100 mg PO BID 10 Days #20 tab 02/09/22 [place] Carbonate 600 mg PO HS cap 02/09/22 Nicotine 14Mg/24Hr Patch [Habitrol] 1 patch TRANSDERM DAILY patch 02/09/22 polyethylene glycoL 3350 [Miralax] 17 gm PO HS packet 02/09/22 Metoclopramide [Reglan] 10 mg PO TID PRN #15 tab 09/20/22 Allergies Allergy/AdvReac Type Severity Reaction Status Date / Time No Known Allergies Allergy Verified 09/20/22 14:25 Review of Systems ROS Other: All systems not noted in ROS Statement are negative. <Lillian Rivera - Last Filed: 09/20/22 14:24> ROS Other: All systems not noted in ROS Statement are negative. <Pamela Be - Last Filed: 09/20/22 19:29> ROS Statement: Those systems with pertinent positive or pertinent negative responses have been documented in the HPI. Past Medical History Past Medical History: Asthma, GI Bleed, Hypertension, Osteoarthritis (OA), Vascular Disorder Additional Past Medical History / Comment(s): CP, closed head injury, hx hyponatremia, anemia, internal hemorrhoids History of Any Multi-Drug Resistant Organisms: MRSA Date of last positivie culture/infection: stomach MDRO Source:: 2016 Past Surgical History: Orthopedic Surgery Additional Past Surgical History / Comment(s): scope dom. knees Past Anesthesia/Blood Transfusion Reactions: No Reported Reaction Past Psychological History: Bipolar, Panic Disorder, Schizoaffective Disorder Smoking Status: Former smoker Past Alcohol Use History: None Reported Additional Past Alcohol Use History / Comment(s): smoked 10 years 2 ppd quit 2006. 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 Absent: scleral icterus, conjunctival injection, periorbital swelling Respiratory exam: Present: normal lung sounds bilaterally, chest wall tenderness. Absent: respiratory distress, wheezes, rales, rhonchi, stridor Cardiovascular Exam: Present: regular rate, normal rhythm, normal heart sounds. Absent: systolic murmur, diastolic murmur, rubs, gallop, clicks GI/Abdominal exam: Present: soft, normal bowel sounds. Absent: distended, tenderness, guarding, rebound, rigid Extremities exam: Present: normal inspection, full ROM, other (bilateral bicep tenderness without overlying erythema, warmth, swelling. Neurovascularly intact. Full range of motion.) Neurological exam: Present: alert, oriented X3, CN II-XII intact Skin exam: Present: warm, dry, intact, normal color. Absent: rash <Pamela Be - Last Filed: 09/20/22 19:29> - General Exam Comments Initial Comments: Visual Physical Exam Vital signs reviewed General: Well-appearing, nontoxic, no acute distress. Head: Normocephalic, atraumatic Eyes: PERRLA, EOMI ENT: Airway patent Chest: Nonlabored breathing Skin: No visual rash, normal skin tone Neuro: Alert and oriented 3 Musculoskeletal: No gross abnormalities (Lillian Rivera) Course Vital Signs 09/20/22 09/20/22 09/20/22 14:22 17:13 17:52 Temperature 97.4 F L 98.2 F Pulse Rate 81 69 Respiratory 18 18 Rate Blood Pressure 118/73 116/82 Blood Pressure 124/92 [Left Arm Sitting] Blood Pressure 149/83 [Left Arm Standing] Blood Pressure 105/78 [Left Arm Supine] O2 Sat by Pulse 96 100 Oximetry Medical Decision Making - Lab Data Result diagrams: 09/20/22 14:39 09/20/22 14:39 <Pamela Be - Last Filed: 09/20/22 19:29> - Medical Decision Making EKG taken at 14:39, interpreted by me Sinus rhythm, no ST segment or T-wave abnormality Ventricular rate 75, IA interval 168, QRS duration 108, QTC 436 Was pt. sent in by a medical professional or institution (, KRISTEN, CAN MACHINE OPERATOR, urgent care, hospital, or fpc...) When possible be specific @ -[No] Did you speak to anyone other than the patient for history (EMS, parent, family, police, friend...)? What history was obtained from this source @ -[No] Did you review nursing and triage notes (agree or disagree)? Why? @ -[I reviewed and agree with nursing and triage notes] Were old charts reviewed (outside hosp., previous admission, EMS record, old EKG, old radiological studies, urgent care reports/EKG's, fpc records)? Report findings @ -[No old charts were reviewed] Differential Diagnosis (chest pain, altered mental status, abdominal pain women, abdominal pain men, vaginal bleeding, weakness, fever, dyspnea, syncope, he adache, dizziness, GI bleed, back pain, seizure, CVA, palpatations, mental health)? @ -Differential Chest Pain: Stable Angina, Unstable Angina, STEMI, NSTEMI Aortic Dissection, Pneumothorax, Musculoskeletal, Esophageal Spasm GERD, Cholecystitis, Pancreatitis, Zoster, this is not meant to be an all-inclusive list. EKG interpreted by me (3pts min.). @ -[As above] X-rays interpreted by me (1pt min.). @ -Yes, chest x-ray shows pulmonary hypertension without acute process CT interpreted by me (1pt min.). @ -[None done] U/S interpreted by me (1pt. min.). @ -[None done] What testing was considered but not performed or refused? (CT, X-rays, U/S, labs)? Why? @ -[None] What meds were considered but not given or refused? Why? @ -[None] Did you discuss the management of the patient with other professionals (bennett tam i.e. KRISTEN Saez, CAN MACHINE OPERATOR, lab, RT, psych nurse, social science manager, ignition expert, teacher, surveillance sensor officer, disease case manager)? Give summary @ -[No] Was smoking cessation discussed for >3mins.? @ -[No] Was critical care preformed (if so, how long)? @ -[No] Were there social determinants of health that impacted care today? How? (Homelessness, low income, unemployed, alcoholism, drug addiction, transpor tation, low edu. Level, literacy, decrease access to med. care, fci, rehab)? @ -[No] Was there de-escalation of care discussed even if they declined (Discuss DNR or withdrawal of care, Hospice)? DNR status @ -[No] What co-morbidities impacted this encounter? (DM, HTN, Smoking, COPD, CAD, Cancer, CVA, ARF, Chemo, Hep., AIDS, mental health diagnosis, sleep apnea, morbid obesity)? @ -[None] Was patient admitted / discharged? Hospital course, mention meds given and route, prescriptions, significant lab abnormalities, going to OR and other pertinent info. @ -Patient presenting with chest pain He is hemodynamically stable no hypoxia. EKG shows sinus rhythm with no evidence of acute ischemia. Troponin and d- dimer within normal limits. Chest x-ray negative for acute process. Discussed case with patient and his guardian. This is atypical chest pain worsened with palpation of the chest. It was improved with Pepcid and Protonix. Patient feeling better he will follow-up with his primary care provider. He is already taking pepcid and protonix at home. We discussed acid reflux prevention in detail. Undiagnosed new problem with uncertain prognosis? @ -[No] Drug Therapy requiring intensive monitoring for toxicity (Heparin, Nitro, Insulin, Cardizem)? @ -[No] Were any procedures done? @ -[No] Diagnosis/symptom? @ -atypical chest pain Acute, or Chronic, or Acute on Chronic? @ -acute Uncomplicated (without systemic symptoms) or Complicated (systemic symptoms)? @ -uncomplicated Side effects of treatment? @ -[No] Exacerbation, Progression, or Severe Exacerbation? @ -[No] Poses a threat to life or bodily function? How? (Chest pain, [place], [place], pneumonia, PE, COPD, DKA, ARF, appy, cholecystitis, CVA, Diverticulitis, Homicidal, Suicid al, threat to staff... and all critical care pts) @ -[No] Dr. Evans is my attending. (Pamela Be) - Lab Data Lab Results 09/20/22 09/20/22 09/20/22 Range/Units 14:26 14:39 14:39 WBC 8.3 (3.8-10.6) k/uL RBC 4.27 L (4.30-5.90) m/uL Hgb 13.6 (13.0-17.5) gm/dL Hct 38.3 L (39.0-53.0) % MCV 89.8 (80.0-100.0) fL MCH 31.8 (25.0-35.0) pg MCHC 35.4 (31.0-37.0) g/dL RDW 13.8 (11.5-15.5) % Plt Count 275 (150-450) k/uL MPV 7.9 Neutrophils % 58 % Lymphocytes % 30 % Monocytes % 8 % Eosinophils % 2 % Basophils % 0 % Neutrophils # 4.8 (1.3-7.7) k/uL Lymphocytes # 2.5 (1.0-4.8) k/uL Monocytes # 0.6 (0-1.0) k/uL Eosinophils # 0.1 (0-0.7) k/uL Basophils # 0.0 (0-0.2) k/uL D-Dimer (<0.60) mg/L FEU Sodium 131 L (137-145) mmol/L Potassium 3.9 (3.5-5.1) mmol/L Chloride 99 (98-107) mmol/L Carbon Dioxide 24 (22-30) mmol/L Anion Gap 8 mmol/L BUN 14 (9-20) mg/dL Creatinine 0.68 (0.66-1.25) mg/dL Est GFR (CKD-EPI)AfAm >90 (>60 ml/min/1.73 sqM) Est GFR (CKD-EPI)NonAf >90 (>60 ml/min/1.73 sqM) Glucose 79 (74-99) mg/dL Calcium 8.8 (8.4-10.2) mg/dL Total Bilirubin 0.4 (0.2-1.3) mg/dL AST 31 (17-59) U/L ALT 45 (4-49) U/L Alkaline Phosphatase 100 (38-126) U/L Troponin I (0.000-0.034) ng/mL Total Protein 6.9 (6.3-8.2) g/dL Albumin 3.9 (3.5-5.0) g/dL Influenza Type A (PCR) Not Detected (Not Detectd) Influenza Type B (PCR) Not Detected (Not Detectd) RSV (PCR) Not Detected (Not Detectd) SARS-CoV-2 (PCR) Not Detected (Not Detectd) 09/20/22 09/20/22 Range/Units 14:39 16:28 WBC (3.8-10.6) k/uL RBC (4.30-5.90) m/uL Hgb (13.0-17.5) gm/dL Hct (39.0-53.0) % MCV (80.0-100.0) fL MCH (25.0-35.0) pg MCHC (31.0-37.0) g/dL RDW (11.5-15.5) % Plt Count (150-450) k/uL MPV Neutrophils % % Lymphocytes % % Monocytes % % Eosinophils % % Basophils % % Neutrophils # (1.3-7.7) k/uL Lymphocytes # (1.0-4.8) k/uL Monocytes # (0-1.0) k/uL Eosinophils # (0-0.7) k/uL Basophils # (0-0.2) k/uL D-Dimer 0.32 (<0.60) mg/L FEU Sodium (137-145) mmol/L Potassium (3.5-5.1) mmol/L Chloride (98-107) mmol/L Carbon Dioxide (22-30) mmol/L Anion Gap mmol/L BUN (9-20) mg/dL Creatinine (0.66-1.25) mg/dL Est GFR (CKD-EPI)AfAm (>60 ml/min/1.73 sqM) Est GFR (CKD-EPI)NonAf (>60 ml/min/1.73 sqM) Glucose (74-99) mg/dL Calcium (8.4-10.2) mg/dL Total Bilirubin (0.2-1.3) mg/dL AST (17-59) U/L ALT (4-49) U/L Alkaline Phosphatase (38-126) U/L Troponin I <0.012 (0.000-0.034) ng/mL Total Protein (6.3-8.2) g/dL Albumin (3.5-5.0) g/dL Influenza Type A (PCR) (Not Detectd) Influenza Type B (PCR) (Not Detectd) RSV (PCR) (Not Detectd) SARS-CoV-2 (PCR) (Not Detectd) Disposition <Lillian Rivera - Last Filed: 09/20/22 14:24> Is patient prescribed a controlled substance at d/c from ED?: No <Pamela Be - Last Filed: 09/20/22 19:29> Clinical Impression: Atypical chest pain Disposition: HOME SELF-CARE Condition: Good Instructions (If sedation given, give patient instructions): Chest Pain (ED) Additional Instructions: Follow-up with primary care provider in one to 2 days. return to emergency department if you experience new, concerning, or worsening symptoms. Prescriptions: Metoclopramide [Reglan] 10 mg PO TID PRN #15 tab PRN Reason: Nausea Referrals: None,Stated [REFERRING] - 1-2 days
[2022-09-20 14:25] VITALS: RESP 18
[2022-09-20 15:09] LABS: Basophils % (A) 0 %; Eosinophils # (A) 0.1 k/uL (0-0.7); Eosinophils % (A) 2 %; HCT 38.3 % (39.0-53.0); HGB 13.6 gm/dL (13.0-17.5); Lymphocytes # (A) 2.5 k/uL (1.0-4.8); Lymphocytes % (A) 30 %; MCH 31.8 pg (25.0-35.0); MCHC 35.4 g/dL (31.0-37.0); MCV 89.8 fL (80.0-100.0); Mean Platelet Volume 7.9; Monocytes # (A) 0.6 k/uL (0-1.0); Monocytes % (A) 8 %; Neutrophils # (A) 4.8 k/uL (1.3-7.7); Neutrophils % (A) 58 %; Platelet Count 275 k/uL (150-450); RBC 4.27 m/uL (4.30-5.90); RDW 13.8 % (11.5-15.5); WBC 8.3 k/uL (3.8-10.6)
[2022-09-20 15:26] LABS: ALT 45 U/L (4-49); AST 31 U/L (17-59); African American GFR (CKD) >90 (>60 ml/min/1.73 sqM); Albumin 3.9 g/dL (3.5-5.0); Alkaline Phosphatase 100 U/L (38-126); Anion Gap 8 mmol/L; Blood Urea Nitrogen 14 mg/dL (9-20); Calcium 8.8 mg/dL (8.4-10.2); Carbon Dioxide 24 mmol/L (22-30); Chloride 99 mmol/L (98-107); Glucose 79 mg/dL (74-99); Non-African American GFR(CKD) >90 (>60 ml/min/1.73 sqM); Potassium 3.9 mmol/L (3.5-5.1); Sodium 131 mmol/L (137-145); Total Bilirubin 0.4 mg/dL (0.2-1.3); Total Protein 6.9 g/dL (6.3-8.2)
--- NOTE | 2022-09-20 15:59 | XR ---
EXAMINATION TYPE: XR chest 2V DATE OF EXAM: 09/20/2022 COMPARISON: CXR from 02/03/2022. HISTORY: Chest pain. TECHNIQUE: Frontal and lateral views of the chest are obtained. FINDINGS: There is chronic peripheral changes bilaterally without suspicious focal air space opacity , pleural effusion, or pneumothorax seen. The cardiac silhouette size is stable and within normal li mits. Bilateral hilar prominence suggests underlying pulmonary artery hypertension. The osseous stru ctures are intact. IMPRESSION: Chronic changes without acute pulmonary process. No significant change from prior.
[2022-09-20] MEDS ORDERED: FAMOTIDINE 20 MG/2 ML VIAL IV STA (16:28)
[2022-09-20] MEDS ORDERED: PANTOPRAZOLE 40 MG/10 ML VIAL IVP STA (16:28)
[2022-09-20] MEDS ORDERED: SODIUM CHLORIDE 0.9% 1,000 ML IV STA (16:28)
[2022-09-20 17:52] VITALS: BP 116/82; PULSE 69; TEMP 98.2
== END 2022-09-20 19:20 | disposition home or self-care (01) ==
LOC: EC 13:59
DX: R07.89 Other chest pain (principal); I10 Essential (primary) hypertension; J45.909 Unspecified asthma, uncomplicated; M19.90 Unspecified osteoarthritis, unspecified site; Z87.891 Personal history of nicotine dependence; Z79.899 Other long term (current) drug therapy; Z20.822 Contact with and (suspected) exposure to COVID-19
CPT/HCPCS: 36415; 93005; 85379; 80053; 84484; 85025; 87636; 71046; 99284; 96374; 96375; 96361; C9113

== ENCOUNTER → 2022-10-18 | Outpatient (CLI) | payer MEDICARE, OTHER ==
[2022-10-18 16:29] LABS: Partial Thromboplastin Time 27.1 sec (22.0-30.0); Prothrombin Time 10.4 sec (9.0-12.0)
[2022-10-18 21:50] LABS: HCT 40.9 % (39.6-50.0); HGB 13.4 g/dL (13.0-17.0); MCH 30.5 pg (27.0-32.0); MCHC 32.8 g/dL (32.0-37.0); MCV 93.2 fL (80.0-97.0); Mean Platelet Volume 11.1 fL (9.5-12.2); NRBC Per 100 WBC 0 /100 WBCS (0.0-0.0); Platelet Count 337 X 10*3/uL (140-440); RBC 4.39 X 10*6/uL (4.40-5.60); RDW 13.2 % (11.5-14.5); WBC 9.94 X 10*3/uL (4.50-10.00)
[2022-10-19 00:10] LABS: African American GFR (CKD) 123.8 (60.0-200.0); Albumin 4.3 g/dL (3.8-4.9); Albumin/Globulin Ratio 1.6 (1.60-3.17); Anion Gap 9.1 mmol/L (10.00-18.00); BUN/Creat Ratio 21.59 Ratio (12.00-20.00); Blood Urea Nitrogen 17.4 mg/dL (9.0-27.0); Calcium 9.7 mg/dL (8.7-10.3); Carbon Dioxide 22.7 mmol/L (20.0-27.5); Globulin 2.7 g/dL (1.6-3.3); Non-African American GFR(CKD) 106.8 (60.0-200.0); Potassium 4.2 mmol/L (3.5-5.5); Total Bilirubin 0.2 mg/dL (0.30-1.20); Total Protein 6.9 g/dL (6.2-8.2)
[2022-10-19 02:48] LABS: Appearance,Urine Clear (Clear); Bilirubin,Urine Negative (Negative); Blood,Urine Negative (Negative); Color,Urine Yellow (Yellow); Ketones,Urine Negative (Negative); Nitrite,Urine Negative (Negative); PH, Urine 6.5 (5.0-8.0); Specific Gravity,Urine 1.004 (1.001-1.030); Urobilinogen,Urine 0.2 (0.2,1.0)
== END | disposition home or self-care (01) ==
LOC: LABPAT 14:37
PROVIDERS: ATTEND Orthopaedic Surgery
DX: Z01.812 Encounter for preprocedural laboratory examination (principal); M17.11 Unilateral primary osteoarthritis, right knee
CPT/HCPCS: 80053; 81003; 85027; 85610; 85730; 93005

== ENCOUNTER 2022-10-21 10:25 | Day surgery (SDC) | payer MEDICARE, OTHER ==
[~2022-10-21 10:25] MED LIST changes: +ALPRAZolam 0.25 MG TAB PO PRN; +ALPRAZolam 0.5 MG TAB PO PRN; +ASPIRIN 325 MG TAB PO STA; +ATORVASTATIN 80 MG TAB PO STA; +HEPARIN SODIUM,PORCINE 10,000 UNIT in SODIUM CHLORIDE 0.9% 1,000 ML IRRIGATION PRN; +HEPARIN SODIUM,PORCINE 2,500 UNIT in SODIUM CHLORIDE 0.9% 250 ML IRRIGATION PRN; -LACTATED RINGERS 1,000 ML IV SCH; +NITROGLYCERIN SL TABS 0.4 MG TAB SUBLINGUAL PRN; +SODIUM CHLORIDE 0.9% 1,000 ML in EMPTY BAG 1 BAG IV SCH
[2022-10-21 11:22] VITALS: RESP 18; TEMP 98.5
[2022-10-21] MEDS: MIDAZOLAM 2 MG/2 ML VIAL IVP ONE ×2 (12:13→12:22)
[2022-10-21] MEDS ORDERED: fentaNYL (PF) 50 MCG/1 ML VIAL IVP ONE (12:13)
[2022-10-21] MEDS ORDERED: LIDOCAINE 1% INJ 10MG/ML (5 ML VIAL-PF) SQ ONE (12:14)
[2022-10-21] MEDS ORDERED: HEPARIN SODIUM 1,000 UN/ML (10ML VL) IV ONE (12:19)
[2022-10-21] MEDS: VERAPAMIL SYRINGE (5 MG/10 ML) INTRAARTER ONE ×2 (12:19→12:22)
[2022-10-21] MEDS ORDERED: IOPAMIDOL-370 200ML BTL INJ ONE (12:25)
--- NOTE | 2022-10-21 13:14 | CC ---
CARDIAC CATHETERIZATION REPORT INDICATIONS: Abnormal stress test showing transient ischemic dilatation raising the possibility of multivessel coronary artery disease. This is a 47-year-old gentleman who is to undergo knee replacement by Dr. Moffett, had a stress test that was abnormal due to which he was referred to me. The patient was advised to undergo cardiac catheterization to rule out coronary artery disease. He was explained of risks, benefits, and alternatives, understood and accepted. PROCEDURE NOTE: After obtaining informed consent, left heart catheterization and coronary angiogram were performed via the right radial artery using standard Elio catheters. The patient tolerated the procedure well without any obvious immediate complications. He received verapamil and heparin per protocol, received moderate conscious sedation. Total sedation time was 15 minutes. Right radial artery access was obtained using Seldinger technique, 6-[place] sheath was placed. Catheters and wires were floated into the ascending aorta under fluoroscopic guidance. FINDINGS: 1. Hemodynamics: Left ventricular end-diastolic pressure is 14 mm, there is no significant gradient across the aortic valve. 2. Left Ventriculogram: Left ventriculogram is not performed. 3. Angiographic Data: a.Left Main Coronary Artery: Left main coronary artery is a normal-sized vessel and is free of stenosis. Divides into left anterior descending coronary artery and circumflex coronary artery. LAD and its branches, circumflex coronary artery and its branches are free of significant stenosis. Right coronary artery is a large dominant vessel and is free of significant disease. CONCLUSIONS: 1. Normal coronary arteries. 2. Elevated left ventricular end-diastolic pressures. PLAN: I reviewed angiographic data with the patient and told him that his stress test is a false-positive stress test and that he can safely proceed with his surgery. MMODL / IJN: [id number] /
--- NOTE | 2022-10-21 13:57 | LTR ---
Dear Dr. Moffett: Parrish De Los Santos is a 47-year-old gentleman who is to undergo knee replacement by you and was referred to us because of an abnormal stress test. On a cardiac catheterization I performed, he has normal coronary arteries. The patient is an acceptable risk candidate for surgery under anesthesia and you can proceed with the knee replacement expeditiously. Thank you for allowing me to participate in the care of this pleasant gentleman. Sincerely, GARCIA / ANNETTEN: [id number] /
[2022-10-21 14:41] VITALS: BP 121/69; PULSE 75
== END 2022-10-21 15:39 | disposition home or self-care (01) ==
LOC: CATHCVL 10:25
PROVIDERS: ATTEND Internal Medicine Cardiovascular Disease
DX: G45.9 Transient cerebral ischemic attack, unspecified (principal); I10 Essential (primary) hypertension; E78.5 Hyperlipidemia, unspecified; E66.01 Morbid (severe) obesity due to excess calories; Z68.41 Body mass index [BMI] 40.0-44.9, adult; M19.90 Unspecified osteoarthritis, unspecified site; Z82.49 Family history of ischemic heart disease and other diseases of the circulatory system; E07.9 Disorder of thyroid, unspecified; Z87.891 Personal history of nicotine dependence; Z79.890 Hormone replacement therapy; Z79.899 Other long term (current) drug therapy
CPT/HCPCS: 93458; 99152; C1769; C1894; J2250; J2001; J1644; J3010; Q9967

== ENCOUNTER → 2022-10-21 | Outpatient (CLI) | payer MEDICARE, OTHER | END | disposition home or self-care (01) | LOC: LABWHC1 09:54 | PROVIDERS: ATTEND Orthopaedic Surgery | DX: Z01.812 Encounter for preprocedural laboratory examination (principal) | CPT/HCPCS: 87070 ==

== ENCOUNTER 2022-10-26 10:52 | Inpatient (IN) | payer MEDICARE, OTHER ==
[~2022-10-26 10:52] MED LIST changes: +ACETAMINOPHEN TAB 500 MG TAB PO PRN; -ALPRAZolam 0.25 MG TAB PO PRN; -ALPRAZolam 0.5 MG TAB PO PRN; -ASPIRIN 325 MG TAB PO STA; -ATORVASTATIN 80 MG TAB PO STA; +DEXAMETHASONE SOD PHOSPHATE 10 MG/ML 1 ML VIAL IV PRN; +DEXAMETHASONE SOD PHOSPHATE 4 MG/ML 1 ML VIAL IV ONE; +DOCUSATE 100 MG CAP PO PRN; +FAMOTIDINE 20 MG/2 ML VIAL IVP PRN; +HEPARIN SODIUM 1,000 UN/ML (10ML VL) ONE; -HEPARIN SODIUM,PORCINE 10,000 UNIT in SODIUM CHLORIDE 0.9% 1,000 ML IRRIGATION PRN; -HEPARIN SODIUM,PORCINE 2,500 UNIT in SODIUM CHLORIDE 0.9% 250 ML IRRIGATION PRN; +HYDROmorphone 0.5 MG/0.5 ML SYRINGE IVP PRN; +KETOROLAC 15 MG/ML 1 ML VIAL IVP PRN; -NITROGLYCERIN SL TABS 0.4 MG TAB SUBLINGUAL PRN; +ONDANSETRON 4 MG/2 ML VIAL IVP ONE; +ONDANSETRON 4 MG/2 ML VIAL IVP PRN; +ROPIVACAINE/EPI/CLONIDINE/KET 50 ML SYRINGE MISCELLANE PRN; -SODIUM CHLORIDE 0.9% 1,000 ML in EMPTY BAG 1 BAG IV SCH; +TRANEXAMIC ACID IN NACL,ISO-OS 1,000 MG in SALINE 1 100ML.BAG IV PRN; +TRANEXAMIC ACID IN NACL,ISO-OS 1,000 MG in SALINE 1 100ML.BAG IVPB PRN; +VERAPAMIL 2.5 MG/ML 2 ML AMP ONE; +ceFAZolin 3 GM in SODIUM CHLORIDE 0.9% 100 ML IVPB PRN; +fentaNYL (PF) 50 MCG/ML 2 ML AMP ONE; +oxyCODONE ER 10 MG TAB.ER.12H PO PRN
[2022-10-26] MEDS ORDERED: LACTATED RINGERS 1,000 ML IV ONE ×2 (11:00→13:55)
[2022-10-26] MEDS ORDERED: fentaNYL (PF) 50 MCG/ML 2 ML AMP IVP ONE (11:53)
[2022-10-26] MEDS ORDERED: MIDAZOLAM 2 MG/2 ML VIAL IVP ONE ×2 (11:53→12:04)
[2022-10-26] MEDS ORDERED: PROPOFOL 10 MG/ML 20 ML VIAL IV ONE (12:52)
[2022-10-26] MEDS ORDERED: fentaNYL (PF) 50 MCG/ML 2 ML AMP ONE (12:52)
[2022-10-26] MEDS ORDERED: MIDAZOLAM 2 MG/2 ML VIAL ONE (12:52)
[2022-10-26] MEDS ORDERED: ePHEDrine 50 MG/ML 1 ML VIAL ONE (12:52)
[2022-10-26] MEDS ORDERED: TRANEXAMIC ACID IN NACL,ISO-OS 1,000 MG/100 ML BAG ONE (12:52)
[2022-10-26] MEDS ORDERED: ROCURONIUM 10 MG/ML (5 ML VIAL) IV ONE (12:52)
[2022-10-26] MEDS ORDERED: ROPIVACAINE 5 MG/ML 30 ML VIAL ONE (12:52)
[2022-10-26] MEDS ORDERED: GLYCOPYRROLATE 0.2 MG/ML 2 ML VIAL ONE (12:52)
[2022-10-26] MEDS ORDERED: PHENYLEPHRINE-0.9% NACL SYG 1,000 MCG/10 ML SYRINGE ONE (12:52)
[2022-10-26] MEDS ORDERED: NEOSTIGMINE 1 MG/ML 10 ML VIAL ONE (12:52)
[2022-10-26] MEDS ORDERED: ONDANSETRON 4 MG/2 ML VIAL IVP PRN (15:26)
[2022-10-26] MEDS ORDERED: HYDROmorphone 1 MG/ML 1 ML SYRINGE IVP PRN (15:26)
[2022-10-26] MEDS ORDERED: hydrOXYzine pamoate 25 MG CAP PO PRN (15:26)
[2022-10-26] MEDS ORDERED: NALOXONE 0.4 MG/ML 1 ML VIAL IV PRN (15:26)
[2022-10-26] MEDS ORDERED: HYDROcodone/APAP 5-325MG 1 EACH TAB PO PRN (15:26)
[2022-10-26] MEDS ORDERED: MAGNESIUM HYDROXIDE 2,400 MG/10 ML CUP PO PRN (15:26)
[2022-10-26] MEDS ORDERED: HYDROmorphone 0.5 MG/0.5 ML SYRINGE IVP PRN ×2 (15:26)
--- NOTE | 2022-10-26 15:45 | P.OP ---
Date of Procedure: 10/26/22 Preoperative Diagnosis: 1. Severe right knee osteoarthritis 2. BMI 42 3. Closed head injury 4. Cerebral Palsy Postoperative Diagnosis: Same Procedure(s) Performed: Right total knee arthroplasty Implants: 1. Lizbeth Triathlon CR Femur Size #5 2. [place] [employer] [place] Tibial Base Size #6 3. Lizbeth Triathlon CS poly Size #9 4. Lizbeth Triathlon all poly patella, Size #32 Anesthesia: SEMAJA, regional Surgeon: Mesfin Moffett Food Beverage Supervisor #1: Gold Guardado Estimated Blood Loss (ml): 100 IV fluids (ml): 1,200 Pathology: none sent Condition: stable Disposition: PACU Indications for Procedure: I met with the patient preoperatively in the office setting and discussed treatment of their symptomatic knee arthritis. They failed a long course of nonsurgical treatment and elected to proceed with an elective total knee replacement. I discussed the potential risks and complications at length and gave them ample time to ask questions. Risks discussed included: risks from anesthesia, superficial site surgical infection, acute and/or chronic periprosthetic joint infection, delayed wound healing, drainage, wound necrosis, instability, stiffness, stiffness requiring manipulation and/or revision surgery, damage to local blood vessels or nerves, aseptic loosening of the implants, extensor mechanism issues including disruption, patellar maltracking, avascular necrosis etc., continued or worsened knee pain, generalized dissatisfaction with surgical outcome, need for revision surgery, an inability to regain preinjury level of function, DVT, PE, other medical complications, and possibly loss of life or limb. The patient voiced their understanding that while these are the most common complications other less common complications are possible. They provided both their verbal and written consent to go forward with surgery. Operative Findings: Severe full-thickness cartilage loss in the medial compartment, partial thickness cartilage loss patella and femoral trochlea Description of Procedure: The patient was identified in preoperative holding and the correct operative extremity was verified and marked with a marker. I reviewed the consent form with the patient at length. All of their questions were answered. The patient was given a block by anesthesia. They were then brought back to the operating room. They were transferred onto the operating room table where a general anesthetic, preoperative antibiotics, and tranexamic acid were administered by anesthesia. A tourniquet was applied to the proximal aspect of the operative extremity. The contralateral extremity was padded under the heel and secured to the operating room table with a nonsterile blue towel and tape. The ipsilateral arm was carefully draped across the patient's chest and secured with a pillow and foam. A post was applied over the lateral aspect of the ipsilateral thigh and a bolster was placed under the ipsilateral foot. I verified that the operative extremity was stable and the knee was flexed to 90. The operative extremity was then placed in a leg wilcox, nonsterile drapes were applied, and the extremity was prepped and draped sterilely in the standard sterile fashion. Prior to starting surgery timeout was performed identifying the correct patient, operative extremity, and procedure. The leg was then elevated, exsanguinated wi th an Esmarch bandage, and the tourniquet was inflated. An anterior midline incision was made sharply with a scalpel. Once I had dissected deep to the superficial fascial layer medial and lateral flaps were elevated. A medial parapatellar arthrotomy was created. Upon opening the knee joint there were diffuse arthritic changes in all 3 compartments. The anterior horn of the medial meniscus were sharply released and a medial release was performed around the posterior medial corner of the knee to facilitate retractor placement. The fat pad was excised with electrocautery. The patella was found to be severely arthritic and a provisional cut was made with a sagittal saw to facilitate mobilization of the extensor mechanism during the procedure. Remnants of the ACL and PCL were then excised from the notch. 4 mm pins were then placed within the incision in the medial distal femur and proximal tibia. Arrays were applied to the pins and I verified they were completely tightened. The knee was then registered with the [employer] robot and manipulations in implant position were made to balance the knee and opitmize implant position. Using the Nahun robotic saw all cuts were made in accordance with our plan. After all bony fragments had been removed the cuts were verified with the planar probe. The tibia was then subluxed forward and sized. The knee was brought into flexion and a lamina family law legal assistant was placed to allow removal of the meniscal remnants both medially and laterally as well as posterior osteophytes. Local anesthetic was then infiltrated around the joint capsule. Trial implants were then placed within the knee. Range of motion and collateral ligament tension was then evaluated. Adjustments in implant size and position were then made accordingly. Once the knee was felt to be appropriately balanced the Nahun pins were removed. The patella was then recut, sized, and punched. A trial patellar button was then placed. With the trial components in place, the patella tracked midline. The femur was then drilled and the trial component removed. The trial tibial component was then appropriately rotated, pinned, and prepared for the keel. All trial components were then removed from the knee. The knee was thoroughly irrigated with pulsatile lavage. Cement was prepared via vacuum mixing in a bowl on the back table. I then hand pressurized cement into the femur and tibia and placed the implants beginning with the tibial base tray and poly liner, femoral component, and finally the patellar button. All extruded cement was removed including from the pin sites. Once the cement had hardened the knee was evaluated one final time with the final polyethylene liner in place. The knee had full extension and flexion and felt stable to varus and valgus stress throughout the arc of motion. The tourniquet was released and with the tourniquet down the patella tracked midline. All bleeders were controlled with electrocautery. The knee was then soaked for 3 minutes with a dilute Betadine soak. The knee was thoroughly irrigated using 3 L of sterile saline and pulsatile lavage. The extensor mechanism was then reapproximated using pop off Vicryl sutures followed by a running barbed suture. The knee was then closed in layers with a 0 strata fix for the deep fascial layer, 2-0 strata fix for the superficial subcutaneous layer and Monocryl and Steri-Strips for the skin. A sterile dressing was applied. I verified that all instrument, sponge, and sharp counts were correct. The patient was then transferred off the operating room table, extubated, and brought to recovery having tolerated the procedure well. Gold Guardado PA-C was required as a skilled guest services assistant due to the complexity of the procedure for patient positioning, draping, retraction, placement of hardware, and closure of wound. PLAN: The patient can weight-bear as tolerated on the operative extremity. DVT prophylaxis with aspirin 81 mg twice a day based on preoperative risk stra tification. The patient would like to go to rehab or long term facility following surgery given his closed head injury and cerebral palsy. Follow-up in the office in 2 weeks for wound check and x-rays of the knee including an AP and lateral.
--- NOTE | 2022-10-26 16:04 | XR ---
EXAMINATION TYPE: XR knee limited RT DATE OF EXAM: 10/26/2022 CLINICAL HISTORY: Right knee pain and arthritis status post total knee replacement. TECHNIQUE: Portable AP and crosstable lateral views of the right knee are obtained immediately posto peratively. COMPARISON: Recent CT October 10, 2022 FINDINGS: Metallic hardware from total right knee arthroplasty is seen and appears satisfactory in a lignment and position. There is evidence of recent surgery with diffuse subcutaneous gas and soft ti ssue swelling noted. IMPRESSION: METALLIC HARDWARE FROM TOTAL RIGHT KNEE ARTHROPLASTY IS SATISFACTORY IN ALIGNMENT.
[2022-10-26] MEDS ORDERED: HYDROmorphone 0.5 MG/0.5 ML SYRINGE IVP ONE (16:05)
--- NOTE | 2022-10-26 17:05 | P.ANPRN ---
Procedure Note - Anesthesia - Nerve Block Performed Right Adductor Canal Single Time Out Performed: Yes (1152) Date of Procedure: 10/26/22 Procedure Start Time: 11:53 Procedure Stop Time: 11:57 Location of Patient: PreOp Indication: Acute Post-Operative Pain, Requested by Surgeon Specifically requested for management of pain by DrJacki: Mesfin Moffett Sedation Type: Sedate with meaningful contact maintained Preparation: Sterile Prep Position: Supine Catheter: None Needle Types: Pajunk Needle Gauge: 21 Ultrasound used to visualize needle placement: Yes Ultrasound used to observe medication spread: Yes Injectate: 0.5% Ropivacaine (see comment for volume) (15cc +10cc nacl pf) Blood Aspirated: No Pain Paresthesia on Injection Noted: No Resistance on Injection: Normal Image Stored and Saved: Yes Events: Uneventful and Well Tolerated
--- NOTE | 2022-10-26 17:05 | P.ANPRN ---
Procedure Note - Anesthesia - Nerve Block Performed Right iPack Single Time Out Performed: Yes (1152) Date of Procedure: 10/26/22 Procedure Start Time: 11:58 Procedure Stop Time: 12:00 Location of Patient: PreOp Indication: Acute Post-Operative Pain, Requested by Surgeon Specifically requested for management of pain by DrJacki: Mesfin Moffett Sedation Type: Sedate with meaningful contact maintained Preparation: Sterile Prep Position: Supine Catheter: None Needle Types: Pajunk Needle Gauge: 21 Ultrasound used to visualize needle placement: Yes Ultrasound used to observe medication spread: Yes Injectate: 0.5% Ropivacaine (see comment for volume) (15cc +10cc nacl pf) Blood Aspirated: No Pain Paresthesia on Injection Noted: No Resistance on Injection: Normal Image Stored and Saved: Yes Events: Uneventful and Well Tolerated
[2022-10-26] MEDS: LACTATED RINGERS 1,000 ML IV SCH (17:43)
[2022-10-26] MEDS: ceFAZolin 3 GM in SODIUM CHLORIDE 0.9% 100 ML IVPB SCH (19:44)
[2022-10-26] MEDS: ASPIRIN 81 MG PO SCH (19:44)
[2022-10-26] MEDS: SENNOSIDES-DOCUSATE SODIUM 1 EACH TAB PO SCH (19:44)
[2022-10-26] MEDS: SODIUM CHLORIDE 0.9% 1,000 ML IV SCH (19:45)
[2022-10-26] MEDS: HYDROcodone/APAP 5-325MG 1 EACH TAB PO PRN (23:54)
[2022-10-27] MEDS: SODIUM CHLORIDE 0.9% 1,000 ML IV SCH (05:59)
[2022-10-27] MEDS: ceFAZolin 3 GM in SODIUM CHLORIDE 0.9% 100 ML IVPB SCH (05:59)
[2022-10-27] MEDS: HYDROcodone/APAP 5-325MG 1 EACH TAB PO PRN (06:02)
[2022-10-27] MEDS: ASPIRIN 81 MG PO SCH ×2 (07:37→22:11)
[2022-10-27] MEDS ORDERED: hydrOXYzine pamoate 25 MG CAP PO PRN (08:59)
[2022-10-27] MEDS ORDERED: NICOTINE 14MG/24HR PATCH TRANSDERM PRN (08:59)
[2022-10-27] MEDS: DULoxetine HCL 60 MG CAPSULE.DR PO SCH ×2 (09:17→22:10)
[2022-10-27] MEDS: LEVOTHYROXINE 25 MCG TAB PO SCH (09:17)
[2022-10-27] MEDS: lisinopriL 20 MG TAB PO SCH (09:17)
[2022-10-27] MEDS: TOPIRAMATE 25 MG TAB PO SCH ×2 (09:31→22:13)
[2022-10-27] MEDS: PROPRANOLOL LA 60 MG CAP.SA.24H PO SCH (09:31)
[2022-10-27 10:49] LABS: Basophils # (A) 0.02 X 10*3/uL (0.00-0.10); Basophils % (A) 0.1 %; Eosinophils # (A) 0 X 10*3/uL (0.04-0.35); Eosinophils % (A) 0 %; HGB 12.2 g/dL (13.0-17.0); Immature Grans, Automated 0.3 %; Lymphocytes # (A) 1.34 X 10*3/uL (0.90-5.00); Lymphocytes % (A) 9.6 %; MCH 31.3 pg (27.0-32.0); MCHC 32.1 g/dL (32.0-37.0); MCV 97.4 fL (80.0-97.0); Mean Platelet Volume 10.8 fL (9.5-12.2); Monocytes # (A) 0.94 X 10*3/uL (0.20-1.00); Monocytes % (A) 6.8 %; NRBC Per 100 WBC 0 /100 WBCS (0.0-0.0); Neutrophils # (A) 11.56 X 10*3/uL (1.80-7.70); Neutrophils % (A) 83.2 %; Platelet Count 304 X 10*3/uL (140-440); RDW 13.8 % (11.5-14.5)
[2022-10-27] MEDS: oxyCODONE-APAP 5-325MG 1 EACH TAB PO PRN ×3 (11:30→22:10)
--- NOTE | 2022-10-27 12:11 | P.PN ---
Subjective Progress Note Date: 10/27/22 This patient is a 47- year old male who is status-post right total knee arthroplasty on 10/26/22. Today is post-operative day #1. Patient is examined with Dr. Moffett. Patient is up to the bedside chair. He has worked with physical therapy this morning. He is experiencing moderate pain in the knee, otherwise he is doing well. No new complaints. He is awaiting auth for rehab. Objective - Vital Signs Vital signs: Vital Signs Temp 98.0 F 10/27/22 07:32 Pulse 83 10/27/22 07:32 Resp 17 10/27/22 07:32 BP 147/61 10/27/22 07:32 Pulse Ox 96 10/27/22 07:32 FiO2 Intake & Output 10/26/22 10/27/22 10/27/22 18:59 06:59 18:59 Intake Total 2150 400 Output Total 100 1850 Balance 2050 -1450 Weight 133.356 kg Intake: IV 1550 Intake, IV Titration 150 Amount Sodium Chloride 0.9% 1, 150 000 ml @ 75 mls/hr IV . [id number] [facility] Rx#:[id number] Oral 450 400 Output: Urine 1850 Straight 1250 Estimated Blood Loss 100 Other: # Voids 1 - Exam On examination, patient is sitting up in the bedside chair in no apparent distress. He is alert and orientated x3. On inspection of the right knee, there is a clean, dry, intact Opsite dressing in place. No bleeding or drainage through the dressing. Mild swelling. Motor and sensory function is intact of the right lower extremity. Right lower extremity is warm and well perfused. Calf non-tender. - Labs CBC & Chem 7: 10/27/22 07:43 Labs: Abnormal Lab Results - Last 24 Hours (Table) 10/27/22 Range/Units 07:43 WBC 13.90 H (4.50-10.00) X 10*3/uL RBC 3.90 L (4.40-5.60) X 10*6/uL Hgb 12.2 L (13.0-17.0) g/dL Hct 38.0 L (39.6-50.0) % MCV 97.4 H (80.0-97.0) fL Neutrophils # 11.56 H (1.80-7.70) X 10*3/uL Eosinophils # 0 L (0.04-0.35) X 10*3/uL Assessment and Plan Assessment: Status-post right total knee arthroplasty on 10/26/22. Post-op day #1. Plan: - Weight bear to tolerance on operative extremity with a walker. - Physical therapy for gait and balance training. - Keep operative dressing in place. Do not remove. - Oral pain medication increased to Percocet 5/325mg. - Aspirin 81mg BID for DVT prophylaxis. - 2 doses post-op antibiotics complete. - Internal medicine for cony-op medical management. - Anticipate discharge to rehab when auth obtained.
[2022-10-27] MEDS: LACTATED RINGERS 1,000 ML IV SCH (13:07)
[2022-10-27] MEDS: SENNOSIDES-DOCUSATE SODIUM 1 EACH TAB PO SCH (22:10)
[2022-10-27] MEDS: MIRTAZAPINE 15 MG TAB PO SCH (22:11)
[2022-10-27] MEDS: cloZAPine 100 MG TAB PO SCH (22:12)
[2022-10-28] MEDS: SODIUM CHLORIDE 0.9% 1,000 ML IV SCH ×2 (04:13→08:15)
[2022-10-28] MEDS: LEVOTHYROXINE 25 MCG TAB PO SCH (07:04)
[2022-10-28] MEDS: TOPIRAMATE 25 MG TAB PO SCH ×2 (08:14→20:06)
[2022-10-28] MEDS: lisinopriL 20 MG TAB PO SCH (08:15)
[2022-10-28] MEDS: DULoxetine HCL 60 MG CAPSULE.DR PO SCH ×2 (08:15→20:06)
[2022-10-28] MEDS: PROPRANOLOL LA 60 MG CAP.SA.24H PO SCH (08:15)
[2022-10-28] MEDS: ASPIRIN 81 MG PO SCH ×2 (08:15→20:06)
[2022-10-28] MEDS: oxyCODONE-APAP 5-325MG 1 EACH TAB PO PRN ×3 (08:21→21:28)
--- NOTE | 2022-10-28 08:36 | P.CONS ---
History of Present Illness - Reason for Consult Consult date: 10/27/22 - History of Present Illness Parrish De Los Santos is a 47 yo M with PMH of bipolar disorder, severe recurrent depression, OA, morbid obesity. He is admitted for scheduled R TKA; pt POD#1, feeling well overall today, reports his pain is overall controlled and he has been able to stand. He is working with therapy. Denies chest pain, shortness of breath, fever, chills. Review of Systems All systems: negative Constitutional: Denies chills, Denies fever Eyes: denies blurred vision, denies pain Ears, nose, mouth and throat: Denies headache, Denies sore throat Cardiovascular: Denies chest pain, Denies shortness of breath Respiratory: Denies cough Gastrointestinal: Denies abdominal pain, Denies diarrhea, Denies nausea, Denies vomiting Musculoskeletal: Denies myalgias Integumentary: Denies pruritus, Denies rash Neurological: Denies numbness, Denies weakness Psychiatric: Denies anxiety, Denies depression Endocrine: Denies fatigue, Denies weight change Past Medical History Past Medical History: Asthma, Chest Pain / Angina, CVA/TIA, GI Bleed, Hypertension, Osteoarthritis (OA), Vascular Disorder Additional Past Medical History / Comment(s): closed head injury, hx hyponatremia, anemia, internal hemorrhoids 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 knees, Past Anesthesia/Blood Transfusion Reactions: No Reported Reaction Additional Past Anesthesia/Blood Transfusion Reaction / Comm: no blood tx hx Past Psychological History: Bipolar, Panic Disorder, Schizoaffective Disorder Smoking Status: Former smoker Past Alcohol Use History: None Reported Additional Past Alcohol Use History / Comment(s): smoked 10 years 2 ppd quit 2006. 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 Past Drug Use History: None Reported - Past Family History Father Family Medical History: Cancer Additional Family Medical History / Comment(s): liver cancer Medications and Allergies Home Medications Medication Instructions Recorded Confirmed Type Albuterol Inhaler [Ventolin Hfa 1 - 2 puff INHALATION RT-Q6H PRN 10/07/16 10/26/22 History Inhaler] Mirabegron [Myrbetriq] 50 mg PO HS 10/07/16 10/26/22 History lisinopriL [Prinivil] 20 mg PO DAILY 10/07/16 10/26/22 History DULoxetine HCL [Cymbalta] 60 mg PO BID 02/03/22 10/26/22 History Docusate [Colace] 100 mg PO DAILY 02/03/22 10/26/22 History Levothyroxine Sodium [Synthroid] 25 mcg PO DAILY 02/03/22 10/26/22 History Pravastatin Sodium [Pravachol] 20 mg PO DAILY 02/03/22 10/26/22 History Propranolol LA [Inderal LA] 60 mg PO DAILY 02/03/22 10/26/22 History Tamsulosin [Flomax] 0.4 mg PO DAILY 02/03/22 10/26/22 History Topiramate 50 mg PO BID 02/03/22 10/26/22 History cloZAPine [Clozaril] 250 mg PO HS 02/03/22 10/26/22 History hydrOXYzine pamoate [hydrOXYzine 25 mg PO TID PRN 02/03/22 10/26/22 History PAMOATE] polyethylene glycoL 3350 [Miralax] 17 gm PO HS packet 02/09/22 10/26/22 Rx Nicotine 14Mg/24Hr Patch [Habitrol] 1 patch TRANSDERM DAILY PRN 10/20/2210/26 History Remeron (Unk) 15 mg PO HS 10/20/22 10/26/22 History Aspirin 81 mg PO DAILY PRN 10/21/22 10/26/22 History traMADol HCL 50 mg PO Q6H PRN 10/26/22 10/26/22 History Allergies Allergy/AdvReac Type Severity Reaction Status Date / Time No Known Allergies Allergy Verified 10/26/22 11:13 Physical Exam Vitals: Vital Signs Temp Pulse Resp BP Pulse Ox 10/28/22 08:00 99.0 F 93 18 174/80 95 10/28/22 02:41 98.1 F 101 H 18 101/66 94 L 10/27/22 20:00 18 10/27/22 13:35 97.9 F 67 16 118/75 97 Intake and Output 10/27/22 10/28/22 10/28/22 22:59 06:59 14:59 Intake Total 500 Output Total 0 Balance 500 Intake: Oral 500 Output: Urine 0 Gen: morbidly obese, NAD HEENT: NC/AT, mmm Neck: supple, no JVD or thyromegaly CV: RRR, no murmur Lungs: normal effort, clear throughout Abd; soft, nontender non distended Neuro: alert and oriented x3 no focal deficit Skin: warm and dry Results CBC & Chem 7: 10/27/22 07:43 Labs: Abnormal Lab Results - Last 24 Hours (Table) 10/27/22 Range/Units 07:43 WBC 13.90 H (4.50-10.00) X 10*3/uL RBC 3.90 L (4.40-5.60) X 10*6/uL Hgb 12.2 L (13.0-17.0) g/dL Hct 38.0 L (39.6-50.0) % MCV 97.4 H (80.0-97.0) fL Neutrophils # 11.56 H (1.80-7.70) X 10*3/uL Eosinophils # 0 L (0.04-0.35) X 10*3/uL Assessment and Plan Plan: OA; s/p R TKA. Management per ortho. Continue to work with therapy. Pt for rehab Bipolar disorder. Resume home psychiatric medications HTN. Continue lisinopril
[2022-10-28] MEDS: LACTATED RINGERS 1,000 ML IV SCH (13:03)
--- NOTE | 2022-10-28 14:12 | P.PN ---
Subjective Progress Note Date: 10/28/22 This patient is a 47- year old male who is status-post right total knee arthroplasty on 10/26/22. Today is post-operative day #2. Patient is examined with Dr. Moffett. Patient states his knee is sore but pain is well controlled. He is awaiting auth for rehab. No new complaints. Objective - Vital Signs Vital signs: Vital Signs Temp 99.0 F 10/28/22 08:00 Pulse 93 10/28/22 08:00 Resp 18 10/28/22 08:00 BP 174/80 10/28/22 08:00 Pulse Ox 95 10/28/22 08:00 FiO2 Intake & Output 10/27/22 10/28/22 10/28/22 18:59 06:59 18:59 Intake Total 500 Output Total 0 Balance 500 Intake: Oral 500 Output: Urine 0 - Exam On examination, patient is sitting up in the bedside chair in no apparent distress. He is alert and orientated x3. On inspection of the right knee, there is a clean, dry, intact Opsite dressing in place. No bleeding or drainage through the dressing. Mild swelling. Motor and sensory function is intact of the right lower extremity. Right lower extremity is warm and well perfused. Calf non-tender. - Labs CBC & Chem 7: 10/27/22 07:43 Assessment and Plan Assessment: Status-post right total knee arthroplasty on 10/26/22. Post-op day #2. Plan: - Weight bear to tolerance on operative extremity with a walker. - Physical therapy for gait and balance training. - Keep operative dressing in place. Do not remove. - Percocet 5/325mg as needed for pain. - Aspirin 81mg BID for DVT prophylaxis. - Internal medicine for cony-op medical management. - Anticipate discharge to rehab tomorrow.
[2022-10-28] MEDS: cloZAPine 100 MG TAB PO SCH (20:06)
[2022-10-28] MEDS: SENNOSIDES-DOCUSATE SODIUM 1 EACH TAB PO SCH (20:06)
[2022-10-28] MEDS: MIRTAZAPINE 15 MG TAB PO SCH (20:06)
[2022-10-29] MEDS: SODIUM CHLORIDE 0.9% 1,000 ML IV SCH (00:04)
[2022-10-29] MEDS: LEVOTHYROXINE 25 MCG TAB PO SCH (05:41)
[2022-10-29] MEDS: oxyCODONE-APAP 5-325MG 1 EACH TAB PO PRN ×2 (06:59→14:03)
[2022-10-29] MEDS: PROPRANOLOL LA 60 MG CAP.SA.24H PO SCH (08:16)
[2022-10-29] MEDS: lisinopriL 20 MG TAB PO SCH (08:16)
[2022-10-29] MEDS: ASPIRIN 81 MG PO SCH (08:16)
[2022-10-29] MEDS: DULoxetine HCL 60 MG CAPSULE.DR PO SCH (08:16)
[2022-10-29] MEDS: TOPIRAMATE 25 MG TAB PO SCH (08:16)
--- NOTE | 2022-10-29 09:12 | P.DS ---
Providers Date of admission: 10/26/22 19:29 Expected date of discharge: 10/29/22 Attending physician: Mesfin Moffett Consults: 10/26/22 15:26 Consult Physician Routine Consulting Provider: Luis Antonio Torres Consult Reason/Comments: medical management Do you want consulting provider notified?: Yes Primary care physician: [facility] Course: This is a 47-year-old male who was last seen with complaint of continued right knee pain. The patient has a known history of degenerative arthritis of the right knee and presents to discuss surgical options. After discussion and consideration the patient elects to proceed with total right knee arthroplasty. The patient is seen preoperatively by Sylvie De Los Santos. SOLID SURFACE FABRICATOR and Dr. Hazel and cleared for surgery. The patient is admitted to [facility] for total right knee arthroplasty on 10/26/22. The procedures performed without complication or sequelae. Patient is doing well postoperatively. Vital signs are stable at discharge. Labs are stable at discharge. The patient is examined bedside this morning with Dr. Moffett. He is up to the bedside chair. His right knee pain is well controlled at this time. No new complaints. On examination the patient is sitting up in the bedside chair. He is alert and oriented 3. On inspection of the right knee, there is a clean, dry, intact surgical dressing in place. No bleeding or drainage to the dressing. There is mild swelling. Motor and sensory function is intact of the right lower extremity. Right lower extremity is warm and well-perfused with brisk capillary refill distally. Calf is soft nontender to palpation. The patient is discharged to rehab on postop day #3 pending medical clearance. Please see orders and refer to the [facility] rec for accurate list of medications. Patient should follow-up in the office in 2 weeks at [facility]. Plan - Discharge Summary Discharge Rx Participant: Yes New Discharge Prescriptions: New Aspirin 81 mg PO BID 30 Days #60 tab Diclofenac Sodium [Voltaren] 75 mg PO BID 30 Days #60 tab Docusate [Colace] 100 mg PO BID #60 capsule Omeprazole 40 mg PO DAILY 30 Days #30 cap oxyCODONE HCL/ACETAMINOPHEN [Percocet 5-325 mg] 1 tab PO Q6HR PRN 7 Days #28 tab PRN Reason: Pain No Action lisinopriL [Prinivil] 20 mg PO DAILY Albuterol Inhaler [Ventolin Hfa Inhaler] 1 - 2 puff INHALATION RT-Q6H PRN PRN Reason: Shortness Of Breath Mirabegron [Myrbetriq] 50 mg PO HS DULoxetine HCL [Cymbalta] 60 mg PO BID cloZAPine [Clozaril] 250 mg PO HS Topiramate 50 mg PO BID Docusate [Colace] 100 mg PO DAILY Remeron (Unk) 15 mg PO HS traMADol HCL 50 mg PO Q6H PRN PRN Reason: Pain Propranolol LA [Inderal LA] 60 mg PO DAILY Pravastatin Sodium [Pravachol] 20 mg PO DAILY hydrOXYzine pamoate [hydrOXYzine PAMOATE] 25 mg PO TID PRN PRN Reason: Anxiety Levothyroxine Sodium [Synthroid] 25 mcg PO DAILY Tamsulosin [Flomax] 0.4 mg PO DAILY polyethylene glycoL 3350 [Miralax] 17 gm PO HS packet Nicotine 14Mg/24Hr Patch [Habitrol] 1 patch TRANSDERM DAILY PRN PRN Reason: stop smoking Aspirin 81 mg PO DAILY PRN PRN Reason: Per Protocol Discharge Medication List Albuterol Inhaler [Ventolin Hfa Inhaler] 1 - 2 puff INHALATION RT-Q6H PRN 10/07/16 [History] Mirabegron [Myrbetriq] 50 mg PO HS 10/07/16 [History] lisinopriL [Prinivil] 20 mg PO DAILY 10/07/16 [History] DULoxetine HCL [Cymbalta] 60 mg PO BID 02/03/22 [History] Docusate [Colace] 100 mg PO DAILY 02/03/22 [History] Levothyroxine Sodium [Synthroid] 25 mcg PO DAILY 02/03/22 [History] Pravastatin Sodium [Pravachol] 20 mg PO DAILY 02/03/22 [History] Propranolol LA [Inderal LA] 60 mg PO DAILY 02/03/22 [History] Tamsulosin [Flomax] 0.4 mg PO DAILY 02/03/22 [History] Topiramate 50 mg PO BID 02/03/22 [History] cloZAPine [Clozaril] 250 mg PO HS 02/03/22 [History] hydrOXYzine pamoate [hydrOXYzine PAMOATE] 25 mg PO TID PRN 02/03/22 [History] polyethylene glycoL 3350 [Miralax] 17 gm PO HS packet 02/09/22 [Rx] Nicotine 14Mg/24Hr Patch [Habitrol] 1 patch TRANSDERM DAILY PRN 10/20/22 [History] Remeron (Unk) 15 mg PO HS 10/20/22 [History] Aspirin 81 mg PO DAILY PRN 10/21/22 [History] traMADol HCL 50 mg PO Q6H PRN 10/26/22 [History] Aspirin 81 mg PO BID 30 Days #60 tab 10/29/22 [Rx] Diclofenac Sodium [Voltaren] 75 mg PO BID 30 Days #60 tab 10/29/22 [Rx] Docusate [Colace] 100 mg PO BID #60 capsule 10/29/22 [Rx] Omeprazole 40 mg PO DAILY 30 Days #30 cap 10/29/22 [Rx] oxyCODONE HCL/ACETAMINOPHEN [Percocet 5-325 mg] 1 tab PO Q6HR PRN 7 Days #28 tab 10/29/22 [Rx] Follow up Appointment(s)/Referral(s): Mesfin Moffett MD [Medical Doctor] - 2 Weeks Activity/Diet/Wound Care/Special Instructions: Weight bear to tolerance on operative extremity with a walker. Keep operative dressing in place until follow-up in the office. Call the office if dressing becomes saturated or falls off. May shower over dressing. Take pain medication as needed. Take aspirin 81mg BID x 4 weeks for blood clot prevention. Follow-up in the office in two weeks at [facility]. Call the office with any questions or concerns, Discharge Disposition: TRANSFER TO SNF/ECF
[2022-10-29 11:27] LABS: Basophils # (A) 0.03 X 10*3/uL (0.00-0.10); Basophils % (A) 0.3 %; Eosinophils # (A) 0.06 X 10*3/uL (0.04-0.35); Eosinophils % (A) 0.6 %; HCT 33.8 % (39.6-50.0); HGB 10.8 g/dL (13.0-17.0); Immature Grans, Automated 0.5 %; Lymphocytes # (A) 2.24 X 10*3/uL (0.90-5.00); Lymphocytes % (A) 22.2 %; MCH 30.6 pg (27.0-32.0); MCV 95.8 fL (80.0-97.0); Mean Platelet Volume 11.2 fL (9.5-12.2); Monocytes # (A) 1.55 X 10*3/uL (0.20-1.00); Monocytes % (A) 15.3 %; NRBC Per 100 WBC 0 /100 WBCS (0.0-0.0); Neutrophils # (A) 6.18 X 10*3/uL (1.80-7.70); Neutrophils % (A) 61.1 %; Platelet Count 260 X 10*3/uL (140-440); RBC 3.53 X 10*6/uL (4.40-5.60); RDW 14.1 % (11.5-14.5); WBC 10.11 X 10*3/uL (4.50-10.00)
[2022-10-29 11:28] LABS: RBC Morphology NORMAL
[2022-10-29 13:56] VITALS: BP 92/63; PULSE 70; RESP 18; TEMP 98.4
== END 2022-10-29 14:06 | DRG 470 ==
LOC: OR 10:52 → 4SSUR 15:14 → OR 19:29 → 4SSUR 19:29
PROVIDERS: ADMIT Orthopaedic Surgery; ATTEND Orthopaedic Surgery
PROC: 0SRC0J9 Replacement of Right Knee Joint with Synthetic Substitute, Cemented, Open Approach (ICD-10-PCS; principal; 2022-10-26 13:00)
DX: M17.11 Unilateral primary osteoarthritis, right knee (principal); Z68.41 Body mass index [BMI] 40.0-44.9, adult; I69.854 Hemiplegia and hemiparesis following other cerebrovascular disease affecting left non-dominant side; E66.01 Morbid (severe) obesity due to excess calories; F31.9 Bipolar disorder, unspecified; F10.21 Alcohol dependence, in remission; F25.9 Schizoaffective disorder, unspecified; I20.8 Other forms of angina pectoris; E78.5 Hyperlipidemia, unspecified; I10 Essential (primary) hypertension; J45.909 Unspecified asthma, uncomplicated; G80.9 Cerebral palsy, unspecified; Z20.822 Contact with and (suspected) exposure to COVID-19; K21.00 Gastro-esophageal reflux disease with esophagitis, without bleeding; E03.9 Hypothyroidism, unspecified; K64.8 Other hemorrhoids; F41.0 Panic disorder [episodic paroxysmal anxiety]; D64.9 Anemia, unspecified; S09.90XS Unspecified injury of head, sequela; Z79.82 Long term (current) use of aspirin; Z79.890 Hormone replacement therapy; Z79.899 Other long term (current) drug therapy; Z87.891 Personal history of nicotine dependence; Z86.14 Personal history of Methicillin resistant Staphylococcus aureus infection
CPT/HCPCS: 64447; 64999; 85025; 87635

== ENCOUNTER → 2022-11-14 | Outpatient (CLI) | payer MEDICARE, OTHER ==
[2022-11-14 22:35] LABS: Appearance,BF Cloudy; Color,BF Red; RBC, Body Fluid 101500 /uL
[2022-11-14 22:36] LABS: Nucleated Cells, Body Fluid 500 /uL
[2022-11-14 22:43] LABS: Mononuclear WBC,Body Fluid 46 %; Polynuclear WBC,Body Fluid 54 %; Total Cells Counted,Body Fluid 100
== END | disposition home or self-care (01) ==
LOC: LABWHC1 11:56
PROVIDERS: ATTEND Orthopaedic Surgery
DX: M25.561 Pain in right knee (principal); G80.9 Cerebral palsy, unspecified; Z96.651 Presence of right artificial knee joint; Z47.1 Aftercare following joint replacement surgery
CPT/HCPCS: 36415; 86140; 87070; 87075; 87205; 89050; 89060

== ENCOUNTER 2022-12-08 07:41 | Day surgery (SDC) | payer MEDICARE, OTHER ==
[2022-12-05 11:43] VITALS: BMI 43.0
[2022-12-08] MEDS ORDERED: LACTATED RINGERS 1,000 ML IV SCH (08:44)
[2022-12-08] MEDS ORDERED: LIDOCAINE 1% (10MG/ML) FOR IV START INTRADERMA PRN (08:44)
[2022-12-08 08:58] VITALS: TEMP 97.4
[2022-12-08] MEDS ORDERED: PROPOFOL 10 MG/ML 20 ML VIAL IV ONE (09:17)
[2022-12-08] MEDS ORDERED: LIDOCAINE 2% INJ 20 MG/ML (2 ML VIAL) ONE (09:17)
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
[2022-12-08 09:48] VITALS: RESP 16
--- NOTE | 2022-12-08 09:51 | P.OP ---
Date of Procedure: 12/08/22 Preoperative Diagnosis: GI bleed Postoperative Diagnosis: Antral gastritis Rectal polyp Internal hemorrhoids Procedure(s) Performed: EGD Colonoscopy Anesthesia: MAC Surgeon: Yaya Justice Pathology: other (Antrum, rectal polyp) Condition: stable Disposition: PACU Description of Procedure: The patient's placed on the endoscopy table in the lateral position. He received IV sedation. The gastroscope placed oropharynx passed in the esophagus into the stomach. Scope was placed through the pylorus. The first and second portion of the duodenum appeared normal. The scope summer back the antrum this was minimal inflamed. A biopsies performed. The was then retroflexed and remainder the stomach appeared normal. There was no significant hiatal hernia. The GE junction was at 47 is. The distal esophagus appeared normal. The proximal esophagus appeared normal. Scope withdrawn for patient. Next digital rectal exam was performed. There a few internal hemorrhoids noted. The flexible colonoscope was then placed patient anus and passed throughout the entire colon. The ileocecal valve was visualized. Cecum, ascending and transverse colon appeared normal. The descending and sigmoid colon appeared normal. The scope was then brought back the rectum and a small sessile polyp was visualized. This removed with the cold forcep. Scope was then withdrawn for patient. There is no evidence of any rectal bleeding. His presumed patient may have had bleeding from internal hemorrhoids.
[2022-12-08 10:10] VITALS: BP 103/73; PULSE 61
== END 2022-12-08 10:22 | disposition home or self-care (01) ==
LOC: ORWHC2ENDO 07:41
PROVIDERS: ATTEND Surgery
DX: D12.8 Benign neoplasm of rectum (principal); K64.8 Other hemorrhoids; K29.70 Gastritis, unspecified, without bleeding; I10 Essential (primary) hypertension; J45.909 Unspecified asthma, uncomplicated; M19.90 Unspecified osteoarthritis, unspecified site; Z87.820 Personal history of traumatic brain injury; D64.9 Anemia, unspecified; Z86.14 Personal history of Methicillin resistant Staphylococcus aureus infection; E87.1 Hypo-osmolality and hyponatremia; G47.33 Obstructive sleep apnea (adult) (pediatric); G80.9 Cerebral palsy, unspecified; Z87.891 Personal history of nicotine dependence; Z80.0 Family history of malignant neoplasm of digestive organs; Z79.51 Long term (current) use of inhaled steroids; Z79.82 Long term (current) use of aspirin; Z79.899 Other long term (current) drug therapy
CPT/HCPCS: 88305; 45380; 43239; J2704; J2001

== ENCOUNTER → 2023-02-16 | Outpatient (CLI) | payer MEDICARE, OTHER | END | disposition home or self-care (01) | LOC: LABWHC1 15:10 | PROVIDERS: ATTEND Orthopaedic Surgery | DX: Z47.1 Aftercare following joint replacement surgery (principal); G80.9 Cerebral palsy, unspecified; Z96.651 Presence of right artificial knee joint | CPT/HCPCS: 36415; 85379; 85652; 86140 ==